=== PATIENT | female | born 1990 | race African-American/Black ===

== ENCOUNTER 2017-12-04 15:58 | Emergency (ER) | payer BC, SELFPAY ==
--- NOTE | 2017-12-04 18:11 | ER ---
Nurse's Notes [facility] Name: Myra Celis Age: 26 yrs Sex: Female : 1990 Arrival Date: 12/04/2017 Time: 16:02 Bed 23 Private MD: None, None Diagnosis: Cutaneous abscess of head [any part, except face];Impetigo Presentation: 12/04 16:09 Presenting complaint: Patient states: I noticed a bump on the L side of my head, alevism ch area last night. it hurt this morning, and busted two hours ago, with pus coming out. I think its a spider bite, im worried about those poisonous ones. Transition of care: patient was not received from another setting of care. Onset of symptoms was December 03, 2017. Risk Assessment: Do you want to hurt yourself or someone else? Patient reports no desire to harm self or others. Initial Sepsis Screen: Does the patient meet any 2 criteria? No. Patient's initial sepsis screen is negative. Does the patient have a suspected source of infection? No. Patient's initial sepsis screen is negative. Care prior to arrival: None. 16:09 Method Of Arrival: Ambulatory 16:09 Acuity: NAINA 5 Triage Assessment: 16:10 General: Appears in no apparent distress. uncomfortable, Behavior is calm, cooperative, ch appropriate for age. 18:25 Bite description: animal information: vaccination(s) is unknown. kr2 18:25 Bite description: bite sustained to left alevism by patient states she thinks it could kr2 have been a spider. 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 - Social history:: Smoking status: Patient uses tobacco products, smokes one-half pack cigarettes per day, Patient/guardian denies using alcohol, street drugs. - Ebola Screening: : Patient negative for fever greater than or equal to 101.5 degrees Fahrenheit, and additional compatible Ebola Virus Disease symptoms Patient denies exposure to infectious person Patient denies travel to an Ebola-affected area in the 21 days before illness onset No symptoms or risks identified at this time. - Family history:: not pertinent. Screenin:30 Abuse screen: Denies threats or abuse. Denies injuries from another. Nutritional kr2 screening: No deficits noted. Tuberculosis screening: No symptoms or risk factors identified. Fall Risk None identified. Assessment: 17:30 General: Appears in no apparent distress. comfortable, well groomed, Behavior is calm, kr2 cooperative, appropriate for age. Pain: Complains of pain in left alevism Pain currently is 3 out of 10 on a pain scale. Quality of pain is described as tender, Is continuous. Neuro: Level of Consciousness is awake, alert, obeys commands, Oriented to person, place, time, situation. Cardiovascular: Capillary refill < 3 seconds in bilateral fingers Patient's skin is warm and dry. Respiratory: Airway is patent Respiratory effort is even, unlabored, Respiratory pattern is regular, symmetrical. Derm: Skin is healthy with good turgor, Skin is pink, warm \T\ dry. raised area to left side of scalp, patient reports it was draining pus. No drainage at this time. 18:37 Reassessment: Patient appears in no apparent distress at this time. Patient and/or kr2 family updated on plan of care and expected duration. Pain level reassessed. Patient is alert, oriented x 3, equal unlabored respirations, skin warm/dry/pink. Vital Signs: 16:10 BP 104 / 69; Pulse 89; Resp 16; Temp 99.2; Pulse Ox 99% on R/A; Weight 58.97 kg; Height 5 ft. 5 in. (165.10 cm); Pain 8/10; 17:26 BP 108 / 75 RA Sitting (auto/reg); Pulse 90; Resp 18 S; Temp 99(O); Pulse Ox 100% on jp3 R/A; Pain 8/10; 18:30 BP 104 / 60; Pulse 89; Resp 17; Pulse Ox 98% on R/A; kr2 16:10 Body Mass Index 21.63 (58.97 kg, 165.10 cm) ED Course: 16:02 Patient arrived in ED. sb2 16:02 None, None is Private Physician. sb2 16:10 Triage completed. ch 16:10 Arm band placed on left wrist. Patient placed in waiting room. 17:20 Pulse ox on. NIBP on. jp3 17:29 Tomasz Taylor MD is Attending Physician. [facility] 17:31 Bed in low position. Call light in reach. Warm blanket given. jp3 17:52 Veronica Ramos, RN is Primary Nurse. kr2 18:22 Urine collected: clean catch specimen, sylwia colored. kr2 18:37 No provider procedures requiring assistance completed. Patient did not have IV access kr2 during this emergency room visit. Administered Medications: 18:12 Drug: Doxycycline 200 mg Route: PO; kr2 18:36 Follow up: Response: Medication administered at discharge. kr2 18:12 Drug: Bactrim (160 mg-800 mg (DS) 1 tablet Route: PO; kr2 18:36 Follow up: Response: Medication administered at discharge. kr2 18:28 Drug: Bactroban Ointment 2 % 1 application Route: Topical; Site: affected area; kr2 18:37 Follow up: Response: Medication administered at discharge. kr2 Outcome: 18:10 Discharge ordered by . [facility] 18:37 Discharged to home ambulatory. kr2 18:37 Condition: good 18:37 Discharge instructions given to patient, Instructed on discharge instructions, follow up and referral plans. medication usage, Demonstrated understanding of instructions, follow-up care, medications, Prescriptions given X 4. 18:39 Patient left the ED. kr2 Signatures: Juani Fisher, RN RN Tomasz Quiroz MD MD cha Reaves, Karey, RN RN kr2 Lynette Newberry2 Filiberto Avila jp3
--- NOTE | 2017-12-04 18:11 | EDPHYS ---
Physician Documentation [facility] Name: Myra Celis Age: 26 yrs Sex: Female : 1990 Arrival Date: 12/04/2017 Time: 16:02 Bed 23 Private MD: None, None ED Physician Tomasz Taylor HPI: 12/04 17:58 This 26 yrs old Black Female presents to ER via Ambulatory with complaints of Insect romy Bite. 17:58 The patient presents with an abscess of the left lutheran, the patient presents with a romy swollen area of the left lutheran. Description: The affected area is small, confluent, draining, erythematous, warm. Onset: The symptoms/episode began/occurred 3 day(s) ago. Possible cause(s): unknown, insect sting. Associated signs and symptoms: The patient has no apparent associated signs or symptoms. Severity of symptoms: At their worst the symptoms were mild, in the emergency department the symptoms are unchanged. The patient has not experienced similar symptoms in the past. 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 - Social history:: Smoking status: Patient uses tobacco products, smokes one-half pack cigarettes per day, Patient/guardian denies using alcohol, street drugs. - Ebola Screening: : Patient negative for fever greater than or equal to 101.5 degrees Fahrenheit, and additional compatible Ebola Virus Disease symptoms Patient denies exposure to infectious person Patient denies travel to an Ebola-affected area in the 21 days before illness onset No symptoms or risks identified at this time. - Family history:: not pertinent. ROS: 17:58 Constitutional: Negative for fever, chills, and weight loss, Eyes: Negative for injury, romy pain, redness, and discharge, ENT: Negative for injury, pain, and discharge, Neck: Negative for injury, pain, and swelling, Cardiovascular: Negative for chest pain, palpitations, and edema, Respiratory: Negative for shortness of breath, cough, wheezing, and pleuritic chest pain, Abdomen/GI: Negative for abdominal pain, nausea, vomiting, diarrhea, and constipation, Back: Negative for injury and pain, : Negative for injury, bleeding, discharge, and swelling, MS/Extremity: Negative for injury and deformity, Neuro: Negative for headache, weakness, numbness, tingling, and seizure, Psych: Negative for depression, anxiety, suicide ideation, homicidal ideation, and hallucinations, Allergy/Immunology: Negative for hives, rash, and allergies, Endocrine: Negative for neck swelling, polydipsia, polyuria, polyphagia, and marked weight changes, Hematologic/Lymphatic: Negative for swollen nodes, abnormal bleeding, and unusual bruising. 17:58 Skin: Positive for erythema, swelling, of the left lutheran. Exam: 17:58 Constitutional: This is a well developed, well nourished patient who is awake, alert, romy and in no acute distress. Eyes: Pupils equal round and reactive to light, extra-ocular motions intact. Lids and lashes normal. Conjunctiva and sclera are non-icteric and not injected. Cornea within normal limits. Periorbital areas with no swelling, redness, or edema. ENT: Nares patent. No nasal discharge, no septal abnormalities noted. Tympanic membranes are normal and external auditory canals are clear. Oropharynx with no redness, swelling, or masses, exudates, or evidence of obstruction, uvula midline. Mucous membranes moist. Neck: Trachea midline, no thyromegaly or masses palpated, and no cervical lymphadenopathy. Supple, full range of motion without nuchal rigidity, or vertebral point tenderness. No Meningismus. Chest/axilla: Normal chest wall appearance and motion. Nontender with no deformity. No lesions are appreciated. Cardiovascular: Regular rate and rhythm with a normal S1 and S2. No gallops, murmurs, or rubs. Normal PMI, no JVD. No pulse deficits. Respiratory: Lungs have equal breath sounds bilaterally, clear to auscultation and percussion. No rales, rhonchi or wheezes noted. No increased work of breathing, no retractions or nasal flaring. Back: No spinal tenderness. No costovertebral tenderness. Full range of motion. Female : Normal external genitalia. Skin: Warm, dry with normal turgor. Normal color with no rashes, no lesions, and no evidence of cellulitis. MS/ Extremity: Pulses equal, no cyanosis. Neurovascular intact. Full, normal range of motion. Neuro: Awake and alert, GCS 15, oriented to person, place, time, and situation. Cranial nerves II-XII grossly intact. Motor strength 5/5 in all extremities. Sensory grossly intact. Cerebellar exam normal. Normal gait. Psych: Awake, alert, with orientation to person, place and time. Behavior, mood, and affect are within normal limits. 17:58 Abdomen/GI: Inspection: Bowel sounds: normal, Palpation: abdomen is soft and non-tender. 17:58 Skin: abscess, that is small, approximately 1 cm(s), cellulitis, that is minimal, induration, that is mild is noted, injury, is not appreciated. Vital Signs: 16:10 BP 104 / 69; Pulse 89; Resp 16; Temp 99.2; Pulse Ox 99% on R/A; Weight 58.97 kg; Height ch 5 ft. 5 in. (165.10 cm); Pain 8/10; 17:26 BP 108 / 75 RA Sitting (auto/reg); Pulse 90; Resp 18 S; Temp 99(O); Pulse Ox 100% on jp3 R/A; Pain 8/10; 18:30 BP 104 / 60; Pulse 89; Resp 17; Pulse Ox 98% on R/A; kr2 16:10 Body Mass Index 21.63 (58.97 kg, 165.10 cm) MDM: 17:29 Patient medically screened. [facility] 18:09 Data reviewed: vital signs, nurses notes, lab test result(s). [facility] 12/04 18:28 Order name: Urine Dipstick--Ancillary (enter results) 12/04 18:28 Order name: Urine --Ancillary (enter results) 12/04 17:57 Order name: Urine Dipstick-Ancillary (obtain specimen); Complete Time: 18:22 [facility] 12/04 17:57 Order name: Urine Test (obtain specimen); Complete Time: 18:22 [facility] Administered Medications: 18:12 Drug: Doxycycline 200 mg Route: PO; kr2 18:36 Follow up: Response: Medication administered at discharge. kr2 18:12 Drug: Bactrim (160 mg-800 mg (DS) 1 tablet Route: PO; kr2 18:36 Follow up: Response: Medication administered at discharge. 2 18:28 Drug: Bactroban Ointment 2 % 1 application Route: Topical; Site: affected area; kr2 18:37 Follow up: Response: Medication administered at discharge. kr2 Disposition: 12/04/17 18:10 Discharged to Home. Impression: Cutaneous abscess of head [any part, except face], Impetigo. - Condition is Stable. - Discharge Instructions: Skin Abscess, Skin Abscess, [id number], Impetigo, Adult. - Prescriptions for Bactroban 2 % Topical Ointment - Apply to affected area 1 application by TOPICAL route every 12 hours; 30 gram. Tylenol- Codeine #3 300-30 mg Oral Tablet - take 2 tablets by ORAL route every 6 hours As needed; 20 tablet. Doxycycline Hyclate 100 mg Oral Tablet - take 1 tablet by ORAL route every 12 hours; 14 tablet. Bactrim DS 800- 160 mg Oral Tablet - take 1 tablet by ORAL route every 12 hours for 7 days; 14 tablet. - Medication Reconciliation Form, Thank You Letter, Antibiotic Education, Prescription Opioid Use, Work release form form. - Follow up: Private Physician; When: 2 - 3 days; Reason: Recheck today's complaints, Continuance of care, Re-evaluation by your physician. - Problem is new. - Symptoms have improved. Signatures: Dispatcher [employer] EDJuani Tan RN RN Tomasz Quiroz MD MD cha Reaves, Karey, RN RN kr2 Corrections: (The following items were deleted from the chart) 18:39 18:10 12/04/2017 18:10 Discharged to Home. Impression: Cutaneous abscess of head [any kr2 part, except face]; Impetigo. Condition is Stable. Forms are Medication Reconciliation Form, Thank You Letter, Antibiotic Education, Prescription Opioid Use. Follow up: Private Physician; When: 2 - 3 days; Reason: Recheck today's complaints, Continuance of care, Re-evaluation by your physician. Problem is new. Symptoms have improved. romy
[2017-12-04] MEDS ORDERED: DOXYCYCLINE 100 MG CAP PO ONE (18:14)
[2017-12-04] MEDS ORDERED: SMZ./TMP. 800/160 MG TABLET ONE (18:14)
[2017-12-04] MEDS ORDERED: MUPIROCIN 2% OINT 22GM TUBE TOP ONE (18:39)
[2017-12-04 19:03] VITALS: TEMP 99
[2017-12-04 19:04] VITALS: BP 104/60; O2SAT 98
[2017-12-04 19:45] LABS: Urine Blood 2+ (NEG); Urine Glucose NEGATIVE (NEG); Urine Protein NEGATIVE (NEG); Urine Specific Gravity 1.025 (1.005-1.030); Urine pH 8.5 (5.0-7.0)
== END 2017-12-04 18:39 | disposition home or self-care (01) ==
LOC: ER 15:58
DX: L01.00 Impetigo, unspecified (principal); F17.210 Nicotine dependence, cigarettes, uncomplicated; Z88.6 Allergy status to analgesic agent
CPT/HCPCS: 81003; 81025; 99284

== ENCOUNTER 2018-02-05 15:49 | Emergency (ER) | payer SELFPAY ==
[2018-02-05 17:00] LABS: Urine Blood 1+ (NEG); Urine Glucose NEGATIVE (NEG); Urine Protein NEGATIVE (NEG); Urine Specific Gravity >1.030 (1.005-1.030)
[2018-02-05 17:01] LABS: Urine Specific Gravity >1.030 (1.005-1.030)
[2018-02-05 17:01] LABS: Absolute Lymphocytes (CBC) 2.2 K/uL (0.7-4.9); Absolute Monocytes 0.7 K/uL (0.1-1.3); Absolute Neutrophil 6.9 K/uL (1.8-8.0); Basophils % 0.6 % (0-1.3); Eosinophils % 2.5 % (0-4.4); Hematocrit 32.6 % (36.0-45.0); Lymphocytes % 21.3 % (15.3-44.8); MCH 26.6 pg (27.0-35.0); MCV 81.5 fL (80-100); MPV 7.9 fL (7.6-11.3); Monocytes % 7.4 % (3.3-12.3)
[2018-02-05 17:30] LABS: ALT/SGPT 26 U/L (12-78); AST/SGOT 22 U/L (15-37); Albumin 3.2 g/dL (3.4-5.0); Alkaline Phosphatase 80 U/L (45-117); BUN Blood Urea Nitrogen 11 mg/dL (7-18); Bicarbonate 28 mmol/L (21-32); Bilirubin Direct < 0.1 mg/dL (0-0.2); Bilirubin Total 0.2 mg/dL (0.2-1.0); Glucose Level 78 mg/dL (74-106); Lipase 139 U/L (73-393); Potassium 3.4 mmol/L (3.5-5.1); Protein, Total 9.4 g/dL (6.4-8.2); Sodium Level 136 mmol/L (136-145)
--- NOTE | 2018-02-05 18:31 | RAD REPORT ---
EXAM DESCRIPTION: US - Transvaginal OB - 02/05/2018 6:20 pm CLINICAL HISTORY: with abdominal pain COMPARISON: None. FINDINGS: The uterus is retroverted and measures 7 x 5 x 6 centimeters. A gestational sac is presen t within the endometrium. Within this is a yolk sac and pole with a crown-rump length 0.2 centi meters. Cardiac activity was not seen The ovaries are normal in size and echotexture. 2.7 centimeter hemorrhagic right ovarian cyst is susp ected No significant free fluid is seen. IMPRESSION: Single l intrauterine with an estimated gestational age 5 weeks 4 days RICKY . Cardiac activity was not visualized. This probably is simply secondary to the small size of the embryo. Followup endovaginal sonogram in 1 week is recommended A 2.7 centimeter hemorrhagic right ovarian cyst is suspected. This can be monitored on the subsequent exam
[2018-02-05 20:35] LABS: Urine Bacteria NONE SEEN /HPF (<20); Urine Culture Reflex Order NOT NEEDED; Urine RBC <5 /HPF (NONE SEEN)
--- NOTE | 2018-02-05 20:44 | ER ---
Nurse's Notes [facility] Name: Myra Celis Age: 27 yrs Sex: Female : 1990 Arrival Date: 02/05/2018 Time: 15:55 Bed 18 Private MD: Diagnosis: Unspecified abdominal pain Presentation: 02/05 16:00 Presenting complaint: Patient states: generalized abd pain that began 2 weeks ago. Pt aa5 denies N/V/D. Pt states "I also feel really tired'. Transition of care: patient was not received from another setting of care. Onset of symptoms was January 2018. Risk Assessment: Do you want to hurt yourself or someone else? Patient reports no desire to harm self or others. Initial Sepsis Screen: Does the patient meet any 2 criteria? No. Patient's initial sepsis screen is negative. Does the patient have a suspected source of infection? No. Patient's initial sepsis screen is negative. Care prior to arrival: None. 16:00 Method Of Arrival: Ambulatory aa5 16:00 Acuity: NAINA 3 aa5 Triage Assessment: 16:00 General: Appears in no apparent distress. comfortable, Behavior is cooperative, bp appropriate for age, anxious. Pain: Complains of pain in abdomen. GI: Abdomen is non-distended, Bowel sounds present X 4 quads. Abd is soft X 4 quads. 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 - Social history:: Smoking status: Patient uses tobacco products, smokes one-half pack cigarettes per day. - Ebola Screening: : No symptoms or risks identified at this time. Screenin:05 Abuse screen: Denies threats or abuse. Denies injuries from another. Nutritional bp screening: No deficits noted. Tuberculosis screening: No symptoms or risk factors identified. Fall Risk None identified. Assessment: 16:05 General: Appears in no apparent distress. comfortable, Behavior is cooperative, bp appropriate for age, anxious. Pain: Complains of pain in abdomen. Neuro: Level of Consciousness is awake, alert, obeys commands, Oriented to person, place, time, situation, Appropriate for age. Cardiovascular: No deficits noted. Respiratory: Airway is patent Respiratory effort is even, unlabored, Respiratory pattern is regular, symmetrical. GI: Abdomen is non-distended, Bowel sounds present X 4 quads. Abd is soft X 4 quads. : No signs and/or symptoms were reported regarding the genitourinary system. EENT: No deficits noted. Derm: No deficits noted. Musculoskeletal: Circulation, motion, and sensation intact. Range of motion: intact in all extremities. 17:40 Reassessment: ALL CURRENT ORDERS COMPLETED, RESULTS PENDING. bp 19:27 Reassessment: Patient appears in no apparent distress at this time. No changes from jd3 previously documented assessment. Patient and/or family updated on plan of care and expected duration. Pain level reassessed. Patient is alert, oriented x 3, equal unlabored respirations, skin warm/dry/pink. 20:30 Reassessment: Patient appears in no apparent distress at this time. No changes from jd3 previously documented assessment. Patient and/or family updated on plan of care and expected duration. Pain level reassessed. Patient is alert, oriented x 3, equal unlabored respirations, skin warm/dry/pink. 21:31 Reassessment: Patient appears in no apparent distress at this time. No changes from jd3 previously documented assessment. Patient and/or family updated on plan of care and expected duration. Pain level reassessed. Patient is alert, oriented x 3, equal unlabored respirations, skin warm/dry/pink. Vital Signs: 16:03 BP 113 / 71; Pulse 101; Resp 18 S; Temp 99.1(O); Pulse Ox 100% on R/A; Weight 55.79 kg aa5 (R); Height 5 ft. 5 in. (165.10 cm) (R); Pain 8/10; 17:45 BP 119 / 63; Pulse 76; Resp 14; Pulse Ox 100% ; bp 19:27 BP 104 / 69; Pulse 78; Resp 16 S; Pulse Ox 100% on R/A; jd3 21:31 Pulse 75; Resp 17 S; Pulse Ox 100% on R/A; jd3 16:03 Body Mass Index 20.47 (55.79 kg, 165.10 cm) aa5 ED Course: 15:55 Patient arrived in ED. mr 16:00 Arm band placed on. aa5 16:01 Triage completed. aa5 16:05 Patient has correct armband on for positive identification. Bed in low position. Call bp light in reach. Side rails up X2. 16:30 Inserted saline lock: 20 gauge in right antecubital area, using aseptic technique. bp Blood collected. 16:34 Jack Kirk, RN is Primary Nurse. bp 16:34 Bin Peters NP is PHCP. pm1 16:34 Tomasz Taylor MD is Attending Physician. pm1 16:45 Basic Metabolic Panel Sent. ls4 16:45 CBC with Diff Sent. ls4 18:20 US Transvaginal Ob In Process Unspecified. EDMS 21:30 No provider procedures requiring assistance completed. IV discontinued, intact, jd3 bleeding controlled, No redness/swelling at site. Pressure dressing applied. Administered Medications: No medications were administered Outcome: 20:44 Discharge ordered by . pm1 21:30 Discharged to home ambulatory. jd3 21:30 Condition: stable 21:30 Discharge instructions given to patient, Instructed on discharge instructions, follow up and referral plans. Demonstrated understanding of instructions, follow-up care. 21:33 Patient left the ED. jd3 Signatures: Dispatcher [employer] [facility] Isha Nunez mr GuzmanaLury, RN RN aa5 Bin Peters NP BELLMAKER pm1 Carlos Jacinto RN RN jJack Dumont, RN RN Tara Kelley RN RN ls4
--- NOTE | 2018-02-05 20:45 | EDPHYS ---
Physician Documentation [facility] Name: Myra Celis Age: 27 yrs Sex: Female : 1990 Arrival Date: 02/05/2018 Time: 15:55 Bed 18 Private MD: ED Physician Tomasz Taylor HPI: 02/05 20:39 This 27 yrs old Black Female presents to ER via Ambulatory with complaints of Abdominal pm1 Cramping. 20:39 The patient presents to the emergency department with abdominal pain, of the suprapubic pm1 area, that started 14 day(s) ago, described as crampy. Previous pregnancies: the patient has never been . Associated signs and symptoms: Pertinent negatives: chest pain, dysuria, fever, nausea, shortness of breath, vomiting. The patient has not experienced similar symptoms in the past. Patient with complaints of abdominal cramping in the suprapubic area for the past 2 weeks. Patient reports late by two weeks for her cycle. 20:39 Her abdominal pain does not feel like her IBS or Crohn's disease . 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 - Social history:: Smoking status: Patient uses tobacco products, smokes one-half pack cigarettes per day. - Ebola Screening: : No symptoms or risks identified at this time. ROS: 20:39 Constitutional: Negative for fever, chills, and weight loss, Eyes: Negative for injury, pm1 pain, redness, and discharge, ENT: Negative for injury, pain, and discharge, Neck: Negative for injury, pain, and swelling, Cardiovascular: Negative for chest pain, palpitations, and edema, Respiratory: Negative for shortness of breath, cough, wheezing, and pleuritic chest pain. 20:39 Back: Negative for injury and pain, : Negative for injury, bleeding, discharge, and swelling, MS/Extremity: Negative for injury and deformity, Skin: Negative for injury, rash, and discoloration, Neuro: Negative for headache, weakness, numbness, tingling, and seizure. 20:39 Abdomen/GI: Positive for abdominal pain, Negative for nausea, vomiting, and diarrhea. Exam: 20:39 Constitutional: This is a well developed, well nourished patient who is awake, alert, pm1 and in no acute distress. Head/Face: Normocephalic, atraumatic. Eyes: Pupils equal round and reactive to light, extra-ocular motions intact. Lids and lashes normal. Conjunctiva and sclera are non-icteric and not injected. Cornea within normal limits. Periorbital areas with no swelling, redness, or edema. ENT: Nares patent. No nasal discharge, no septal abnormalities noted. Tympanic membranes are normal and external auditory canals are clear. Oropharynx with no redness, swelling, or masses, exudates, or evidence of obstruction, uvula midline. Mucous membranes moist. Neck: Trachea midline, no thyromegaly or masses palpated, and no cervical lymphadenopathy. Supple, full range of motion without nuchal rigidity, or vertebral point tenderness. No Meningismus. Chest/axilla: Normal chest wall appearance and motion. Nontender with no deformity. No lesions are appreciated. Cardiovascular: Regular rate and rhythm with a normal S1 and S2. No gallops, murmurs, or rubs. Normal PMI, no JVD. No pulse deficits. Respiratory: Lungs have equal breath sounds bilaterally, clear to auscultation and percussion. No rales, rhonchi or wheezes noted. No increased work of breathing, no retractions or nasal flaring. 20:39 Back: No spinal tenderness. No costovertebral tenderness. Full range of motion. Skin: Warm, dry with normal turgor. Normal color with no rashes, no lesions, and no evidence of cellulitis. MS/ Extremity: Pulses equal, no cyanosis. Neurovascular intact. Full, normal range of motion. 20:39 Abdomen/GI: Inspection: abdomen appears normal, Bowel sounds: normal, Palpation: abdomen is soft and non-tender. 20:39 Neuro: Orientation: is normal, Motor: is normal, moves all fours, strength is normal. Vital Signs: 16:03 BP 113 / 71; Pulse 101; Resp 18 S; Temp 99.1(O); Pulse Ox 100% on R/A; Weight 55.79 kg aa5 (R); Height 5 ft. 5 in. (165.10 cm) (R); Pain 8/10; 17:45 BP 119 / 63; Pulse 76; Resp 14; Pulse Ox 100% ; bp 19:27 BP 104 / 69; Pulse 78; Resp 16 S; Pulse Ox 100% on R/A; jd3 21:31 Pulse 75; Resp 17 S; Pulse Ox 100% on R/A; jd3 16:03 Body Mass Index 20.47 (55.79 kg, 165.10 cm) aa5 MDM: 16:35 Patient medically screened. romy 18:21 Data reviewed: vital signs. Data interpreted: Pulse oximetry: on room air is 100 %. pm1 Interpretation: normal. 18:22 ED course: IUP 5 weeks 5 days. pm1 02/05 16:35 Order name: Basic Metabolic Panel pm1 02/05 16:35 Order name: CBC with Diff pm1 02/05 16:35 Order name: Creatinine for Radiology; Complete Time: 17:38 pm1 02/05 16:35 Order name: Hepatic Function; Complete Time: 17:38 pm1 02/05 16:35 Order name: Lipase; Complete Time: 17:38 pm1 02/05 16:36 Order name: Basic Metabolic Panel; Complete Time: 17:38 EDMS 02/05 16:36 Order name: CBC with Automated Diff; Complete Time: 17:38 EDMS 02/05 16:48 Order name: Urine Dipstick--Ancillary (enter results); Complete Time: 17:38 bd 02/05 16:50 Order name: Urine --Ancillary (enter results); Complete Time: 17:38 bd 02/05 17:46 Order name: Quantitative Hcg pm1 02/05 17:46 Order name: Abo/rh Typing; Complete Time: 20:38 pm1 02/05 17:46 Order name: HCG, Quantitative; Complete Time: 19:48 EDMS 02/05 17:46 Order name: Urine Microscopic Only; Complete Time: 20:38 pm1 02/05 21:14 Order name: ABO/RH no charge; Complete Time: 22:29 EDMS 02/05 16:35 Order name: IV Saline Lock; Complete Time: 16:45 pm1 02/05 16:35 Order name: Labs collected and sent; Complete Time: 16:45 pm1 02/05 16:35 Order name: Urine Dipstick-Ancillary (obtain specimen); Complete Time: 16:45 pm1 02/05 16:35 Order name: Urine Test (obtain specimen); Complete Time: 16:45 pm1 02/05 17:46 Order name: NPO; Complete Time: 17:47 pm1 02/05 17:46 Order name: US Transvaginal Ob; Complete Time: 18:32 pm1 Administered Medications: No medications were administered Disposition: 02/06 06:22 Co-signature as Attending Physician, Tomasz Taylor MD I agree with the assessment and romy plan of care. Disposition: 02/05/18 20:44 Discharged to Home. Impression: Unspecified abdominal pain. - Condition is Stable. - Discharge Instructions: Abdominal Pain, Adult. - Medication Reconciliation Form, Thank You Letter form. - Follow up: Emergency Department; When: As needed; Reason: Worsening of condition. Follow up: Private Physician; When: 2 - 3 days; Reason: Recheck today's complaints, Continuance of care, Re-evaluation by your physician. - Problem is new. - Symptoms have improved. Signatures: Dispatcher [employer] Tomasz Arrington MD MD cha Calderon, Audri, RN RN aa5 Bin Peters NP DIRECTOR OF STRATEGIC MARKETING pm1 Carlos Jacinto RN RN jd3 Corrections: (The following items were deleted from the chart) 02/05 21:33 20:44 02/05/2018 20:44 Discharged to Home. Impression: Unspecified abdominal pain. jd3 Condition is Stable. Forms are Medication Reconciliation Form, Thank You Letter, Antibiotic Education, Prescription Opioid Use. Follow up: Emergency Department; When: As needed; Reason: Worsening of condition. Follow up: Private Physician; When: 2 - 3 days; Reason: Recheck today's complaints, Continuance of care, Re-evaluation by your physician. Problem is new. Symptoms have improved. pm1
[2018-02-05 21:57] VITALS: TEMP 99.1; O2SAT 100
[2018-02-05 22:02] VITALS: BP 104/69
== END 2018-02-05 21:33 | disposition home or self-care (01) ==
LOC: ER 15:49
DX: R10.9 Unspecified abdominal pain (principal); Z3A.01 Less than 8 weeks gestation of pregnancy; O99.331 Smoking (tobacco) complicating pregnancy, first trimester; Z88.6 Allergy status to analgesic agent
CPT/HCPCS: 36415; 76817; 80048; 80076; 81003; 81015; 81025; 83690; 84702; 85025; 86900; 86901; 99284

== ENCOUNTER 2018-03-06 13:31 | Emergency (ER) | payer SELFPAY ==
--- NOTE | 2018-03-06 16:26 | RAD REPORT ---
EXAM DESCRIPTION: US - BREAST/AXILLA, LIMITED - 03/06/2018 2:54 pm CLINICAL HISTORY: Left breast mass. COMPARISON: None. FINDINGS: The patient has a palpable area within the retroareolar region of the left breast. Ultraso und demonstrates a 3.7 x .5 cm hypoechoic area within the subcutaneous tissues in this region. No cystic or solid mass within the underlying breast. An abscess is not seen. IMPRESSION: A 3.7 x 0.5 cm hypoechoic area within the subcutaneous tissues of the retroareolar paul on of the left breast which is palpable may represent an area of cellulitis and should be correlated clinically. Follow-up ultrasound in 1 month is recommended for re-evaluation.
--- NOTE | 2018-03-06 16:28 | EDPHYS ---
Physician Documentation [facility] Name: Myra Celis Age: 27 yrs Sex: Female : 1990 Arrival Date: 03/06/2018 Time: 13:34 Bed 12 Private MD: None, None ED Physician Tomasz Taylor HPI: 03/06 15:31 This 27 yrs old Black Female presents to ER via Ambulatory with complaints of Breast jr8 Problem. 15:31 Patient stated that she has swollen area of breast. Sharp pain to area. Has had this jr8 once before and required antibiotics for resolution . Severity of symptoms: At their worst the symptoms were moderate in the emergency department the symptoms are unchanged. The patient has experienced a previous episode. The patient has not recently seen a physician. 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 - Social history:: Smoking status: Patient/guardian denies using tobacco. - Ebola Screening: : No symptoms or risks identified at this time. ROS: 15:31 Eyes: Negative for injury, pain, redness, and discharge, ENT: Negative for injury, jr8 pain, and discharge, Neck: Negative for injury, pain, and swelling, Cardiovascular: Negative for chest pain, palpitations, and edema, Respiratory: Negative for shortness of breath, cough, wheezing, and pleuritic chest pain, Abdomen/GI: Negative for abdominal pain, nausea, vomiting, diarrhea, and constipation, Back: Negative for injury and pain, MS/Extremity: Negative for injury and deformity, Skin: Negative for injury, rash, and discoloration, Neuro: Negative for headache, weakness, numbness, tingling, and seizure. Exam: 15:31 Eyes: Pupils equal round and reactive to light, extra-ocular motions intact. Lids and jr8 lashes normal. Conjunctiva and sclera are non-icteric and not injected. Cornea within normal limits. Periorbital areas with no swelling, redness, or edema. ENT: Nares patent. No nasal discharge, no septal abnormalities noted. Tympanic membranes are normal and external auditory canals are clear. Oropharynx with no redness, swelling, or masses, exudates, or evidence of obstruction, uvula midline. Mucous membranes moist. Neck: Trachea midline, no thyromegaly or masses palpated, and no cervical lymphadenopathy. Supple, full range of motion without nuchal rigidity, or vertebral point tenderness. No Meningismus. Cardiovascular: Regular rate and rhythm with a normal S1 and S2. No gallops, murmurs, or rubs. Normal PMI, no JVD. No pulse deficits. Respiratory: Lungs have equal breath sounds bilaterally, clear to auscultation and percussion. No rales, rhonchi or wheezes noted. No increased work of breathing, no retractions or nasal flaring. Abdomen/GI: Soft, non-tender, with normal bowel sounds. No distension or tympany. No guarding or rebound. No evidence of tenderness throughout. Back: No spinal tenderness. No costovertebral tenderness. Full range of motion. Skin: Warm, dry with normal turgor. Normal color with no rashes, no lesions, and no evidence of cellulitis. MS/ Extremity: Pulses equal, no cyanosis. Neurovascular intact. Full, normal range of motion. Neuro: Awake and alert, GCS 15, oriented to person, place, time, and situation. Cranial nerves II-XII grossly intact. Motor strength 5/5 in all extremities. Sensory grossly intact. Cerebellar exam normal. Normal gait. 15:31 Chest/axilla: Breasts: small flat raised region just outside the areola region at the 8 o'clock position of the breast. Mild erythema noted with retracting of that side of the areola. Mild tenderness to palpation. Negative for nipple discharge. Other breast without acute finding. No palpable lymphadenopathy present . Vital Signs: 13:42 BP 107 / 72; Pulse 106; Resp 16 S; Temp 97.8(O); Pulse Ox 99% on R/A; Weight 57.61 kg [facility] (R); Height 5 ft. 5 in. (165.10 cm) (R); Pain 8/10; 16:35 BP 111 / 75; Pulse 97; Resp 16; Pulse Ox 100% ; rv 13:42 Body Mass Index 21.14 (57.61 kg, 165.10 cm) jl7 MDM: 14:22 Patient medically screened. jr8 16:26 Data reviewed: vital signs, nurses notes, radiologic studies, ultrasound. Data jr8 interpreted: Pulse oximetry: on room air is 99 %. Interpretation: normal. Counseling: I had a detailed discussion with the patient and/or guardian regarding: the historical points, exam findings, and any diagnostic results supporting the discharge/admit diagnosis, radiology results, the need for outpatient follow up, a family practitioner, an OB/Gyne specialist, to return to the emergency department if symptoms worsen or persist or if there are any questions or concerns that arise at home. 03/06 14:36 Order name: Extrmty Nonvasular Limited jr8 03/06 16:27 [facility]: [facility] Administered Medications: No medications were administered Disposition: 03/07 06:38 Co-signature as Attending Physician, Tomasz Taylor MD I agree with the assessment and romy plan of care. Disposition: 03/06/18 16:27 Discharged to Home. Impression: Local infection of the skin and subcutaneous tissue, unspecified - left breast. - Condition is Stable. - Discharge Instructions: Skin Abscess, Cellulitis, Adult. - Prescriptions for Clindamycin HCl 300 mg Oral Capsule - take 1 capsule by ORAL route every 6 hours for 10 days; 40 capsule. - Medication Reconciliation Form, Thank You Letter, Antibiotic Education, Prescription Opioid Use form. - Follow up: Private Physician; When: 2 - 3 days; Reason: Recheck today's complaints, Continuance of care, Re-evaluation by your physician. - Problem is new. - Symptoms have improved. Signatures: Dispatcher [employer] [facility] Tomasz Taylor MD MD cha Roszak, Josh, PA PA jr8 Manoj Robles RN RN jl7 Franck Giles RN RN rv Corrections: (The following items were deleted from the chart) 03/06 16:36 16:27 03/06/2018 16:27 Discharged to Home. Impression: Local infection of the skin and rv subcutaneous tissue, unspecified - left breast. Condition is Stable. Forms are Medication Reconciliation Form, Thank You Letter, Antibiotic Education, Prescription Opioid Use. Follow up: Private Physician; When: 2 - 3 days; Reason: Recheck today's complaints, Continuance of care, Re-evaluation by your physician. Problem is new. Symptoms have improved. jr8
--- NOTE | 2018-03-06 16:28 | ER ---
Nurse's Notes [facility] Name: Myra Celis Age: 27 yrs Sex: Female : 1990 Arrival Date: 03/06/2018 Time: 13:34 Bed 12 Private MD: None, None Diagnosis: Local infection of the skin and subcutaneous tissue, unspecified-left breast Presentation: 03/06 13:41 Presenting complaint: Patient states: lump in left breast started a week ago, throbbing jl7 pain, 8 weeks . Transition of care: patient was not received from another setting of care. Onset of symptoms was February 27, 2018. Risk Assessment: Do you want to hurt yourself or someone else? Patient reports no desire to harm self or others. Initial Sepsis Screen: Does the patient meet any 2 criteria? No. Patient's initial sepsis screen is negative. Does the patient have a suspected source of infection? No. Patient's initial sepsis screen is negative. Care prior to arrival: None. 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 - Social history:: Smoking status: Patient/guardian denies using tobacco. - Ebola Screening: : No symptoms or risks identified at this time. Screenin:49 Abuse screen: Denies threats or abuse. Denies injuries from another. Nutritional iw screening: No deficits noted. Tuberculosis screening: No symptoms or risk factors identified. Fall Risk None identified. Assessment: 14:49 General: Appears in no apparent distress. Behavior is calm, cooperative. Pain: iw Complains of pain in left breast. Neuro: Level of Consciousness is awake, alert, obeys commands, Oriented to person, place, time, situation, Moves all extremities. Full function. Cardiovascular: Capillary refill < 3 seconds in bilateral fingers Patient's skin is warm and dry. Respiratory: Respiratory effort is even, unlabored, Respiratory pattern is regular. Derm: Skin is intact, is healthy with good turgor. Musculoskeletal: Range of motion: intact in all extremities. Vital Signs: 13:42 BP 107 / 72; Pulse 106; Resp 16 S; Temp 97.8(O); Pulse Ox 99% on R/A; Weight 57.61 kg jl7 (R); Height 5 ft. 5 in. (165.10 cm) (R); Pain 8/10; 16:35 BP 111 / 75; Pulse 97; Resp 16; Pulse Ox 100% ; rv 13:42 Body Mass Index 21.14 (57.61 kg, 165.10 cm) jl7 ED Course: 13:34 Patient arrived in ED. sb2 13:35 None, None is Private Physician. sb2 13:42 Triage completed. jl7 13:42 Arm band placed on right wrist. Patient placed in waiting room, Patient notified of jl7 wait time. 14:21 Magan Eli PA is PHCP. jr8 14:21 Tomasz Taylor MD is Attending Physician. jr8 14:49 Maddi Spears, RN is Primary Nurse. iw 14:50 Patient did not have IV access during this emergency room visit. iw 14:56 Ultrasound completed. Patient tolerated well. Patient moved back from ultrasound. thierry 15:00 Patient has correct armband on for positive identification. Call light in reach. NIBP rv on. 16:36 No provider procedures requiring assistance completed. Patient did not have IV access rv during this emergency room visit. Administered Medications: No medications were administered Outcome: 16:27 Discharge ordered by . jr8 16:36 Discharged to home ambulatory. rv 16:36 Condition: good 16:36 Discharge instructions given to patient, Instructed on discharge instructions, follow up and referral plans. medication usage, Demonstrated understanding of instructions, follow-up care, medications, Prescriptions given X 1. 16:36 Patient left the ED. rv Signatures: Maddi Spears, RN JONATHAN iw Magan Eli PA PA jr8 Baldomero Orellana jd, Jahala, RN RN jl7 Lynette Newberry sb2 Franck Giles RN RN rv Corrections: (The following items were deleted from the chart) 13:44 13:41 Presenting complaint: Patient states: lump in left breast started a week ago, jl7 throbbing pain jl7 14:10 13:42 BP 107 / 72; Pulse 106bpm; Resp 06bpm; Spontaneous; Pulse Ox 99% RA; Temp 97.8F jl7 Oral; 57.61 kg Reported; Height 5 ft. 5 in. Reported; BMI: 21.1; Pain 8/; jl7
[2018-03-06 17:08] VITALS: TEMP 97.8
[2018-03-06 17:10] VITALS: BP 111/75; O2SAT 100
== END 2018-03-06 16:36 | disposition home or self-care (01) ==
LOC: ER 13:31
DX: L08.9 Local infection of the skin and subcutaneous tissue, unspecified (principal); Z88.6 Allergy status to analgesic agent
CPT/HCPCS: 76642; 99284

== ENCOUNTER 2021-05-03 10:40 | Emergency (ER) | payer OTHER, SELFPAY ==
[2011-10-14 13:11] VITALS: BP 96/61
--- OUTSIDE RECORDS SUMMARY | 2021-05-03 10:43 | XMS REPORT | Continuity of Care Document ---
:1990 Author Organization [facility] t Address [address] [place] [address] Care Team Providers Name Role Phone Regan CAROL, Efrain Primary Care Physician Doctor Unassigned, Name Attending Clinician Unavailable Payers Payer Name Policy Type Policy Number Effective Date Expiration Date S ource Advance Directives Directive Decision Effective Termination Comments Source Date Date Healthcare Agents on N/A Univ ersity FileNameRelationshipHealthcare Foundation [facility] Agent Medical RelationshipCommunicationMultiCare [facility] Care [phone] (Mobile) Problems Condition Condition Condition Status Onset Resolution Last Treating Co mments Source Name Details Category Date Date Treatment Clinician Date Liveborn Liveborn Disease Active Unive rs , of , of 6-13 [place] y of [place] dical born in born in [facility] by vaginal by vaginal delivery delivery Mild Mild Disease Active Univers pre-eclamp pre-eclamp 6-12 it y of josephine in josephine in 00:00: [place] third third 00 Medical trimester trimester Bran ch Full-term Full-term Disease Active Uni vers premature premature 6-11 ity of rupture [place] 00:[place] membranes membranes 00 Medi jan with onset with onset Br anch of labor of labor within 24 within 24 hours of hours of rupture rupture Obesity Obesity Disease Active Univers (BMI (BMI 6-11 ity of 30-39.9) 30-39.9) 00:00: [place] 00 Medical Branch 38 weeks 38 weeks Disease Active Unive rs gestation gestation 6-11 ity of of of 00:00: [place] 00 [facility] Branch PUPP PUPP Disease Active Univers (pruritic (pruritic 5-31 ity of urticarial urticarial 00:[place] papules papules 00 Medical and and Branch plaques of plaques of ) ) Pruritic Pruritic Disease Active Overview: Un shaji urticarial urticarial 5-30 Formattin ity of papules papules 00:00: g of this [place] and and 00 note Medical plaques of plaques of might be Branch , , different antepartum antepartum from the , third , third original. trimester trimester 09/13/18 - PUPPS rash. Patient started on Medrol dose pack. Serum bile acids normal on 09/10/18. Anemia of Anemia of Disease Active Uni vers mother in mother in 3-19 ity of , , 00:[place] antepartum antepartum 00 Me dical Branch Supervisio Supervisio Disease Active U nivers n of n of 3-15 ity of high-risk high-risk 00:[place] [facility] with with Branch insufficie insufficie nt nt care care History of History of Disease Active U nivers depression depression 3-15 it y of 00:00: [place] 00 Medical Branch History of History of Disease Active Overview : Univers herpes herpes 3-15 Formattin ity of genitalis genitalis 00:00: [place] 00 note Medical might be Branch different from the original. suppressi on therapy start at 36 weeks Crohn's Crohn's Disease Active Overview: Univ ers disease disease 3-15 Formattin ity o f 00:00: g of this [place] 00 note Medical might be Branch different from the original. Reports last time on meds was 06/2017 Allergies, Adverse Reactions, Alerts Allergy Allergy Status Severity Reaction(s) Onset Inactive Treating Comm ents Source Name Type Date Date Clinician Naproxen Propensi Active Hives Univer s ty to 1-28 ity of adverse 00:00: [place] reaction 00 Medical s Branch Social History Social Habit Start Date Stop Date Quantity Comments Source Alcohol intake 2018-10-24 2018-10-24 Current University of 00:00:00 00:00:00 non-drinker of [facility] alcohol Branch (finding) Tobacco Comment 2018-06-29 2018-06-29 Pt quit 2 months Uni versity of 00:00:00 00:00:00 ago [facility] Cigarettes smoked 2018-06-29 2018-06-29 Univers ity of current (pack per 00:00:00 00:00:00 [facility] ) - Reported Branch Cigarette 2018-06-29 2018-06-29 University of pack-years 00:00:00 00:00:00 [facility] Tobacco use and 2018-06-29 2018-06-29 Never used Universit y of exposure 00:00:00 00:00:00 [facility] History of tobacco 2008-06-29 2018-05-01 Cigarette Smoker University of use 00:00:00 00:00:00 [facility] Sex Ass[birth year] At [birth year] Universit y of 00:00:00 00:00:00 [facility] Smoking Status Start Date Stop Date Source Former smoker 2018-06-29 00:00:00 2018-06-29 00:00:00 Universi ty of [facility] Medications Ordered Filled Start Stop Current Ordering Indication Dosage Frequency Signature Comments Components Source Medication Medication Date Date Medication? Clinician (SIG) Name Name Yes [id number] 1{tbl} Take 1 U nivers vitamin 6-13 tablet by ity of w/FA tablet 00:00: mouth [place] 00 daily. Medical Branch ferrous Yes [id number] 325mg Take 1 Uni vers sulfate 325 6-13 tablet by ity of mg (65 mg 00:00: mouth 2 [place] iron) 00 (two) Medical tablet times Branch daily. Immunizations Ordered Filled Immunization Date Status Comments Sourc e Immunization Name Name TDAP 2018-07-20 Completed University 00:00:00 [facility] Influenza Virus 2018-06-29 Completed Universit y of Vaccine Quad .5 mL 00:00:00 [facility] IM 6+ MO Branch HPV 2008-08-22 Completed University of 00:00:00 [facility] HPV 2007-11-27 Completed University 00:00:00 [facility] Procedures This patient has no known procedures. Encounters Start End Encounter Admission Attending Care Care Encounter Source Date/Time Date/Time Type Type Clinicians Facility Department ID 2021-04-12 2021-04-12 Letter Doctor DL [id number] 00:00:00 00:00:00 (Out) Unassigned, [place] [id number] ity of [place] [facility] [id number] Anthony as [id number] [facility] 044 Branch Results This patient has no known results.
--- NOTE | 2021-05-03 12:32 | ER ---
Nurse's Notes [facility] Name: Myra Celis Age: 30 yrs Sex: Female : 1990 Arrival Date: 05/03/2021 Time: 10:44 Bed Waiting Private MD: Diagnosis: ED Course: 05/03 10:44 Patient arrived in ED. ja2 12:11 Patient's name was called from ER lobby. No response. vg1 12:32 Patient's name was called from ER lobby. No response. Unable to locate patient. Will vg1 disposition as left without being seen by a provider. Administered Medications: No medications were administered Outcome: 12:32 Patient left the ED. vg1 Signatures: Diane Avila RN RN vg1 Crystal Coleman
== END 2021-05-03 12:32 | disposition left against medical advice (07) ==
LOC: ER 10:40
DX: Z02.9 Encounter for administrative examinations, unspecified (principal)

== ENCOUNTER 2022-02-15 17:10 | Emergency (ER) | payer OTHER ==
--- OUTSIDE RECORDS SUMMARY | 2022-02-15 17:13 | XMS REPORT | Continuity of Care Document ---
:1990 Author Organization [facility] t Address [address] [place] [address] Care Team Providers Name Role Phone Regan CAROLJessica Efrain Primary Care Physician Doctor Unassigned, [facility] Attending Clinician Unavailable Payers Payer Name Policy Type Policy Number Effective Date Expiration Date S ource Problems Condition Condition Condition Status Onset Resolution Last Treating Co mments Source Name Details Category Date Date Treatment Clinician Date Liveborn Liveborn Disease Active Unive rs , of infant, of 6-13 it y [place] , [place] Me dical born in born in [facility] by vaginal by vaginal delivery delivery Mild Mild Disease Active Univers pre-eclamp pre-eclamp 6-12 it y of josephine in josephine in 00:00: [place] third third 00 Medical trimester trimester Bran ch Full-term Full-term Disease Active Uni vers premature premature 6-11 ity of rupture [place] rupture [place] membranes membranes 00 [facility] with onset with onset Br anch of labor of labor within 24 within 24 hours of hours of rupture rupture Obesity Obesity Disease Active 2018- Univers (BMI (BMI 6-11 ity of 30-39.9) 30-39.9) 00:00: [address] 38 weeks 38 weeks Disease Active Unive rs gestation gestation 6-11 ity of of of 00:00: [place] 00 [facility] Branch PUPP PUPP Disease Active Univers (pruritic [...] of high-risk high-risk 00:[place] [facility] with with Branch insufficie insufficie nt nt [...] Propensi Active Hives Univer s ty to - ity of adverse 00:00: [place] reaction 00 Medical s Branch Social History Social Habit Start Date Stop Date Quantity Comments Source Alcohol intake 2018-10-24 2018-10-24 Current University of 00:00:00 00:00:00 non-drinker of [facility] alcohol Branch (finding) Tobacco Comment 2018-06-29 2018-06-29 Pt quit 2 months Uni versity of 00:00:00 00:00:00 ago [facility] Cigarettes smoked 2018-06-29 2018-06-29 Univers ity of current (pack per 00:00:00 00:00:00 ) - Reported Branch Cigarette 2018-06-29 2018-06-29 University of pack-years 00:00:00 00:00:00 [facility] Tobacco use and 2018-06-29 2018-06-29 Never used Universit y of exposure 00:00:00 00:00:00 [facility] History of tobacco 2008-06-29 2018-05-01 Cigarette Smoker University of use 00:00:00 00:00:00 [facility] Sex Assigned At [birth year] Universit y of 00:00:00 00:00:00 [facility] Smoking Status Start Date Stop Date Source Former smoker 2018-06-29 00:00:00 2018-06-29 00:00:00 Universi ty of [facility] Medications Ordered Filled Start Stop Current Ordering Indication Dosage Frequency Signature Comments Components Source Medication Medication Date Date Medication? Clinician (SIG) Name Name Yes [id number] 1{tbl} Take 1 U nivers vitamin 6-13 tablet by ity of w/FA tablet 00:00: mouth [place] 00 daily. Medical Branch ferrous Yes [id number] 325mg Take 1 Uni vers sulfate 325 6-13 tablet by ity of mg (65 mg 00:00: mouth 2 [place] iron) 00 (two) Medical tablet times [place] daily. Immunizations Ordered Filled Immunization Date Status Comments Sourc e Immunization Name Name TDAP 2018-07-20 Completed University of 00:00:00 [facility] Influenza Virus 2018-06-29 Completed Universit y of Vaccine Quad .5 mL 00:00:00 [facility] IM 6+ MO Branch HPV 2008-08-22 Completed University of 00:00:00 [facility] HPV 2007-11-27 Completed University of 00:00:00 [facility] Procedures This patient has no known procedures. Encounters Start End Encounter Admission Attending Care Care Encounter Source Date/Time Date/Time Type Type Clinicians Facility Department ID 2021-04-12 2021-04-12 Letter Doctor LIZAMA [id number] Univers 00:00:00 00:00:00 (Out) Unassigned, [place] [id number] ity of [facility] [id number] Anthony as [id number] [facility] 044 Branch Results This patient has no known results.
[2022-02-15 17:55] LABS: Urine Blood Trace-intact (Negative); Urine Glucose Negative (Negative); Urine Protein 2+ (Negative); Urine Specific Gravity 1.025 (1.005-1.030)
[2022-02-15 17:58] LABS: Hematocrit 33.8 % (36.0-45.0); Lymphocytes % 23.2 % (15.3-44.8); MCV 78.4 fL (80-100); MPV 8.2 fL (7.6-11.3); RBC Red Blood Cell Count 4.31 M/uL (3.86-4.86)
[2022-02-15 18:14] LABS: Urine Bacteria <20 /HPF (<20); Urine Mucus Slight /HPF (None Seen)
[2022-02-15 18:19] LABS: Bilirubin Total 0.2 mg/dL (0.2-1.0); Potassium 3.2 mmol/L (3.5-5.1); Protein, Total 9.9 g/dL (6.4-8.2)
[2022-02-15 18:20] LABS: Urine Specific Gravity/Preg 1.025 (1.005-1.030)
--- NOTE | 2022-02-15 18:45 | RAD REPORT ---
EXAM DESCRIPTION: US - Abdomen Exam Limited - 02/15/2022 6:24 pm CLINICAL HISTORY: Abdominal pain. COMPARISON: None. FINDINGS: The patient 8 1 hour ago which results in contraction of the gallbladder. This limits eval uation. A normal appearing gallbladder is not seen. Within the right upper quadrant there is an echogenic str ucture with posterior shadowing. Most likely this represents stones within a contracted gallbladder. Gallbladder wall thickness not clearly delineated. Common bile duct normal caliber IMPRESSION: Cholelithiasis within a contracted gallbladder
--- NOTE | 2022-02-15 19:57 | RAD REPORT ---
EXAM DESCRIPTION: CT - Abdomen Pelvis W Contrast - 02/15/2022 7:46 pm CLINICAL HISTORY: Abdominal pain COMPARISON: 2014 TECHNIQUE: Computed axial tomography of the abdomen pelvis was obtained. 100 cc Isovue-300 was admin istered intravenously. Oral contrast was not requested which limits evaluation of bowel and appendix All CT scans are performed using dose optimization technique as appropriate and may include automated exposure control or mA/KV adjustment according to patient size. FINDINGS: The liver, spleen, pancreas, adrenal and left kidney appear unremarkable. Malrotation righ t kidney. Gallbladder is contracted There is no evidence of diverticulitis. Normal appendix 3 centimeter right ovarian cyst without significant free fluid IMPRESSION: 3 centimeter right ovarian cyst without significant free fluid
--- NOTE | 2022-02-15 19:58 | RAD REPORT ---
EXAM DESCRIPTION: [facility] Single View02/15/2022 7:17 pm CLINICAL HISTORY: Chest pain COMPARISON: none FINDINGS: The lungs appear clear of acute infiltrate. The heart is normal size IMPRESSION: No acute abnormalities displayed
--- NOTE | 2022-02-15 20:11 | ER ---
Nurse's Notes [facility] Name: Myra Celis Age: 31 yrs Sex: Female : 1990 Arrival Date: 02/15/2022 Time: 17:13 Bed 15 Private MD: Diagnosis: Other cholelithiasis without obstruction Presentation: 02/15 17:24 Chief complaint: Patient states: Pt reports sudden onset of LUQ abdominal pain that kb3 radiated into epigastrium and up into chest, lasted approximately 10 minutes, pt belched and pain resolved. Pt reports mild nausea with episode without vomiting. Pt states no pain or nausea at this time. Coronavirus screen: Vaccine status: Patient reports being unvaccinated. Client denies travel out of the [place] in the last 14 days. Ebola Screen: Patient negative for fever greater than or equal to 101.5 degrees Fahrenheit, and additional compatible Ebola Virus Disease symptoms Patient denies exposure to infectious person. Patient denies travel to an Ebola-affected area in the 21 days before illness onset. Initial Sepsis Screen: Does the patient meet any 2 criteria? No. Patient's initial sepsis screen is negative. Does the patient have a suspected source of infection? No. Patient's initial sepsis screen is negative. Risk Assessment: Do you want to hurt yourself or someone else? Patient reports no desire to harm self or others. Onset of symptoms was February 15, 2022 at 14:00. 17:24 Method Of Arrival: Ambulatory kb3 17:24 Acuity: NAINA 3 kb3 Triage Assessment: 17:26 General: Appears in no apparent distress. Behavior is calm, cooperative. Pain: Denies kb3 pain. GI: Reports upper abdominal pain, epigastric pain, nausea, All symptoms have resolved. PRACTICE MANAGERS: 17:26 LMP 01/26/2022 kb3 Historical: - Allergies: 17:26 Naproxen; kb3 - Home Meds: 17:26 None [Active]; kb3 - PMHx: 17:26 chron's; Irritable bowel syndrome; kb3 - PSHx: 17:26 None; kb3 - Immunization history:: Adult Immunizations up to date, Client reports having NOT received the Covid vaccine. Last tetanus immunization: unknown. - Social history:: Smoking status: Reported history of juuling and/or vaping. Screenin:35 Abuse screen: Denies threats or abuse. Denies injuries from another. Nutritional ko1 screening: No deficits noted. Tuberculosis screening: No symptoms or risk factors identified. Fall Risk None identified. Assessment: 17:35 General: Appears in no apparent distress. comfortable, Behavior is calm, cooperative, ko1 appropriate for age. Pain: Denies pain. Neuro: No deficits noted. Cardiovascular: No deficits noted. Respiratory: No deficits noted. GI: Bowel sounds present X 4 quads. Abd is soft and non tender X 4 quads. : No deficits noted. EENT: No deficits noted. Derm: No deficits noted. Musculoskeletal: No deficits noted. Vital Signs: 17:24 BP 120 / 81; Pulse 92; Resp 20; Temp 97; Pulse Ox 100% ; Weight 59.87 kg; Height 5 ft. kb3 5 in. (165.10 cm); Pain 0/10; 17:35 BP 120 / 81; Pulse 91; Resp 18; Pulse Ox 99% on R/A; ko1 19:06 Pulse 88; Pulse Ox 100% ; ko1 17:24 Body Mass Index 21.97 (59.87 kg, 165.10 cm) kb3 ED Course: 17:13 Patient arrived in ED. as 17:14 Tomasz Briggs PA is PHCP. cp 17:14 Nikolay Rankin DO is Attending Physician. cp 17:20 Katelin Hankins, JONATHAN is Primary Nurse. ko1 17:26 Triage completed. kb3 17:26 Arm band placed on right wrist. Patient placed in an exam room, on a stretcher. kb3 17:35 Patient has correct armband on for positive identification. Placed in gown. Bed in low ko1 position. Call light in reach. Side rails up X 1. Pulse ox on. NIBP on. 17:35 Inserted saline lock: 22 gauge in right antecubital area, using aseptic technique. ko1 Blood collected. 17:48 CBC with Diff Sent. ko1 17:48 CMP Sent. ko1 17:48 Lipase Sent. ko1 17:48 Urine Microscopic Only Sent. ko1 18:26 Abdomen Limited US In Process Unspecified. EDMS 19:19 XRAY Chest (1 view) In Process Unspecified. EDMS 19:47 CT Abd/Pelvis - IV Contrast Only In Process Unspecified. EDMS 20:10 Alexander Zarate MD is Referral Physician. cp 20:37 No provider procedures requiring assistance completed. IV discontinued, intact, ll3 bleeding controlled, No redness/swelling at site. Pressure dressing applied. Administered Medications: No medications were administered Medication: 20:38 VIS not applicable for this client. ll3 Outcome: 20:11 Discharge ordered by MD. cp 20:37 Discharged to home ambulatory, with family. ll3 20:37 Condition: stable 20:37 Discharge instructions given to patient, family, Instructed on discharge instructions, follow up and referral plans. medication usage, Demonstrated understanding of instructions, follow-up care, medications, Prescriptions given X 3. 20:39 Patient left the ED. ll3 Signatures: Dispatcher [employer] EDSD Asuncion Zarate Corey, Jimena Stewart cp, RN RN ll3 Sania Sandoval, RN RN kb3 Katelin Hankins RN RN ko1 Corrections: (The following items were deleted from the chart) 17:31 17:26 LMP 01/15/2022 kb3 kb3
--- NOTE | 2022-02-15 20:11 | EDPHYS ---
Physician Documentation [facility] Name: Myra Celis Age: 31 yrs Sex: Female : 1990 Arrival Date: 02/15/2022 Time: 17:13 Bed 15 Private MD: ED Physician Nikolay Rankin HPI: 02/15 17:30 This 31 yrs old Black Female presents to ER via Ambulatory with complaints of Abdominal cp Pain, Chest Pain. 17:30 The patient presents with abdominal pain in the epigastric area, in the left upper cp quadrant. 17:30 Onset: The symptoms/episode began/occurred suddenly, today. cp 17:30 The symptoms radiate to chest. cp 17:30 Associated signs and symptoms: Pertinent negatives: constipation, diarrhea, fever, cp shortness of breath, vomiting. The symptoms are described as constant. 17:30 Severity of pain: in the emergency department the pain has resolved and did so just cp prior to arrival. 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 Last tetanus immunization: unknown. - Social history:: Smoking status: Reported history of juuling and/or vaping. ROS: 17:35 Constitutional: Negative for body aches, chills, fever, poor PO intake. cp 17:35 Eyes: Negative for injury, pain, redness, and discharge. cp 17:35 ENT: Negative for drainage from ear(s), ear pain, sore throat, difficulty swallowing, difficulty handling secretions. 17:35 Cardiovascular: Negative for chest pain, edema, palpitations. 17:35 Respiratory: Negative for cough, shortness of breath, wheezing. 17:35 Abdomen/GI: Positive for abdominal pain, Negative for vomiting, diarrhea, constipation, black/tarry stool, rectal bleeding. 17:35 Back: Negative for pain at rest, pain with movement. 17:35 : Negative for urinary symptoms. 17:35 Neuro: Negative for altered mental status, dizziness, headache, weakness. 17:35 All other systems are negative. Exam: 17:40 Constitutional: The patient appears in no acute distress, alert, awake, comfortable, cp non-diaphoretic, non-toxic, well developed, well nourished. 17:40 Head/Face: Normocephalic, atraumatic. cp 17:40 Eyes: Periorbital structures: appear normal, Conjunctiva: normal, no exudate, no injection, Sclera: no appreciated abnormality, Lids and lashes: appear normal, bilaterally. 17:40 ENT: External ear(s): are unremarkable, Nose: is normal, Mouth: Lips: moist, Oral mucosa: moist, Posterior pharynx: Airway: no evidence of obstruction, patent. 17:40 Chest/axilla: Inspection: normal. 17:40 Cardiovascular: Rate: normal, Rhythm: regular. 17:40 Respiratory: the patient does not display signs of respiratory distress, Respirations: normal, no use of accessory muscles, no retractions, labored breathing, is not present, Breath sounds: are clear throughout, no decreased breath sounds, no stridor, no wheezing. 17:40 Abdomen/GI: Inspection: abdomen appears normal, Bowel sounds: active, all quadrants, Palpation: soft, in all quadrants, mild abdominal tenderness, in the epigastric area and left upper quadrant, rebound tenderness, is not appreciated, voluntary guarding, is not appreciated, involuntary guarding, is not appreciated. 17:40 Back: pain, is absent, ROM is normal. 17:40 Neuro: Orientation: to person, place \T\ time. Mentation: is normal, Motor: moves all fours, strength is normal, Sensation: is normal. Vital Signs: 17:24 BP 120 / 81; Pulse 92; Resp 20; Temp 97; Pulse Ox 100% ; Weight 59.87 kg; Height 5 ft. kb3 5 in. (165.10 cm); Pain 0/10; 17:35 BP 120 / 81; Pulse 91; Resp 18; Pulse Ox 99% on R/A; ko1 19:06 Pulse 88; Pulse Ox 100% ; ko1 17:24 Body Mass Index 21.97 (59.87 kg, 165.10 cm) kb3 MDM: 17:23 Patient medically screened. cp 18:00 Differential diagnosis: appendicitis, cholecystitis, Cholelithiasis, non-specific abd cp pain, pancreatitis, Peptic Ulcer Disease, Perf. Duodenal Ulcer, Perf. Gastric Ulcer, Ureterolithiasis, urinary tract infection. 20:10 Data reviewed: vital signs, nurses notes, lab test result(s), radiologic studies, CT cp scan, plain films, ultrasound. 20:10 Counseling: I had a detailed discussion with the patient and/or guardian regarding: the cp historical points, exam findings, and any diagnostic results supporting the discharge/admit diagnosis, lab results, radiology results, the need for outpatient follow up, a general surgeon, to return to the emergency department if symptoms worsen or persist or if there are any questions or concerns that arise at home. Response to treatment: Pain resolved prior to arrival to ED. Discussed results of today's findings. Will discharge to home for continued monitoring and recommend general surgery f/u. 02/15 17:27 Order name: CBC with Diff; Complete Time: 18:27 cp 02/15 18:28 Interpretation: Normal except: HGB 11.0; HCT 33.8; MCV 78.4; MCH 25.5; RDW 15.4. 02/15 17:27 Order name: CMP; Complete Time: 18:27 cp 02/15 19:14 Interpretation: Normal except: NA 134; K 3.2; GLUC 113; TP 9.9; GLOB 5.9; A/G 0.7. 02/15 17:27 Order name: Lipase; Complete Time: 18:27 cp 02/15 17:27 Order name: Urine Microscopic Only; Complete Time: 18:27 cp 02/15 17:55 Order name: Urine Dipstick-Ancillary; Complete Time: 18:27 EDMS 02/15 17:56 Order name: Urine --Ancillary (enter results); Complete Time: 18:27 em1 02/15 17:27 Order name: Abdomen Limited US; Complete Time: 19:13 cp 02/15 17:27 Order name: IV Saline Lock; Complete Time: 17:48 cp 02/15 17:27 Order name: Labs collected and sent; Complete Time: 17:48 cp 02/15 17:27 Order name: Urine Dipstick-Ancillary (obtain specimen); Complete Time: 17:48 cp 02/15 17:27 Order name: Urine Test (obtain specimen); Complete Time: 17:48 02/15 17:27 Order name: NPO; Complete Time: 17:37 cp 02/15 18:29 Order name: XRAY Chest (1 view); Complete Time: 20:00 cp 02/15 19:17 Order name: CT Abd/Pelvis - IV Contrast Only; Complete Time: 20:00 cp Administered Medications: No medications were administered Disposition: 18:36 Co-signature as Attending Physician, Nikolay Rankin DO I was immediately available on-site ms3 in the Emergency Department for consultation in the care of the patient. Disposition Summary: 02/15/22 20:11 Discharge Ordered Location: Home cp Problem: new cp Symptoms: are resolved cp Condition: Stable cp Diagnosis - Other cholelithiasis without obstruction cp Followup: cp - With: Alexander Zarate MD - When: 2 - 3 days - Reason: Recheck today's complaints Discharge Instructions: - Discharge Summary Sheet cp - Cholelithiasis cp Forms: - Medication Reconciliation Form cp - Thank You Letter cp - Antibiotic Education cp - Prescription Opioid Use cp Prescriptions: - Zofran 4 mg Oral Tablet - take 1 tablet by ORAL route every 12 hours As needed; 20 tablet; Refills: 0, cp Product Selection Permitted - dicyclomine 20 mg Oral Tablet - take 1 tablet by ORAL route 4 times per day; 30 tablet; Refills: 0, Product cp Selection Permitted - Pepcid 20 mg Oral Tablet - take 1 tablet by ORAL route every 12 hours for 10 days; 20 tablet; Refills: 0, cp Product Selection Permitted Signatures: Dispatcher [employer] EDHI Tomasz Briggs PA PA cp Nikolay Rankin DO DO ms3 Sania Sandoval RN RN kb3 Corrections: (The following items were deleted from the chart) 19:14 18:28 Normal except: NA 134; K 3.2; GLUC 113. cp cp 19:14 19:14 Normal except: NA 134; K 3.2; GLUC 113; TP 9.9. cp cp
[2022-02-15 21:04] VITALS: BP 120/81; TEMP 97
[2022-02-15 21:06] VITALS: O2SAT 100
== END 2022-02-15 20:39 | disposition home or self-care (01) ==
LOC: ER 17:10
DX: K80.80 Other cholelithiasis without obstruction (principal); Z88.5 Allergy status to narcotic agent
CPT/HCPCS: 85025; 36415; 81025; 83690; 80053; 74177; 71045; 76705; Q9967; 81003; 81015; 99284

== ENCOUNTER 2022-02-28 10:18 | Day surgery (SDC) | payer OTHER ==
[2022-02-28] MEDS ORDERED: Ringers Lactate 1,000 ML IV ONE (11:02)
[2022-02-28] MEDS: CEFOXITIN SODIUM 1 GM/VIAL ONE ×2 (11:22→13:10)
[2022-02-28 12:05] LABS: Amylase 29 U/L (25-115); Lipase 94 U/L (73-393)
[2022-02-28 12:29] LABS: Urine Specific Gravity/Preg >1.030 (1.005-1.030)
[2022-02-28] MEDS ORDERED: propofoL 200 MG/20 ML VIAL IV ONE (12:38)
[2022-02-28] MEDS ORDERED: FENTANYL CITR 100 MCG/2 ML ONE ×2 (12:38→14:31)
[2022-02-28] MEDS ORDERED: LIDOCAINE 2% MPF 5 ML VIAL ONE (12:39)
[2022-02-28] MEDS ORDERED: KETOROLAC 30 MG/ML INJ ONE (12:39)
[2022-02-28] MEDS ORDERED: dexAMETHasone 10 MG/ML VIAL ONE (12:39)
[2022-02-28] MEDS ORDERED: ONDANSETRON 4 MG/2 ML VIAL ONE (12:39)
[2022-02-28] MEDS ORDERED: MIDAZOLAM HCL 2 MG/2 ML INJ ONE (12:39)
[2022-02-28] MEDS ORDERED: ROCURONIUM 50 MG/5 ML VIAL IV ONE (12:39)
[2022-02-28] MEDS ORDERED: SUCCINYLCHOLINE 20 MG/ML (10 ML) IV ONE (12:57)
[2022-02-28] MEDS ORDERED: SUGAMMADEX SODIUM 200 MG/2 ML VIAL IV ONE (12:57)
[2022-02-28 14:51] VITALS: O2SAT 98
[2022-02-28] MEDS ORDERED: Mastisol Adhesive Liq ONE (14:56)
[2022-02-28 16:13] VITALS: BP 125/89; TEMP 98.9
--- NOTE | 2022-02-28 19:13 | DS ---
Ms. Celis is a 31-year-old patient who comes here with gallbladder disease. She was scheduled for laparoscopic cholecystectomy, but the anesthesiologist could not obtain a control of her airway in th e sense of mechanical ventilation. For that case, the case was cancelled, they did their best. Dr. Murphy, who is the director of that department was present, but he could not intubate in a safe [facility] ion. For that reason, they decided to postpone this case for some other day and I agree with them. So she will be discharged home. Continue low-fat diet. She was advised to come to my office and at that moment, we discussed the pros and cons of trying this again in another circumstances and finally we will make the decision if she is going to proceed with the cholecystectomy. REENA/ERNESTO Voice ID: [id number] Report ID: [id number]
== END 2022-02-28 15:58 | disposition home or self-care (01) ==
LOC: OR 10:18
PROVIDERS: ATTEND Surgery
PROC: 0FT44ZZ Resection of Gallbladder, Percutaneous Endoscopic Approach (ICD-10-PCS; principal; 2022-02-28 12:30)
DX: R10.11 Right upper quadrant pain (principal); R10.13 Epigastric pain; Z53.09 Procedure and treatment not carried out because of other contraindication
CPT/HCPCS: 36415; 82150; 81025; 83690; 47562; J2704; J0330; J2001; J2250; J3010 ×2; J1100; J7120; J2405; J0694

== ENCOUNTER 2024-02-03 20:32 | Emergency (ER) | payer OTHER, SELFPAY ==
[2024-02-03 20:53] LABS: Absolute Eosinophils 0.3 K/uL (0-0.5); Absolute Lymphocytes (CBC) 2.2 K/uL (0.7-4.9); Absolute Monocytes 0.7 K/uL (0.1-1.3); Absolute Neutrophil 5.4 K/uL (1.8-8.0); Basophils % 0.3 % (0-1.3); Eosinophils % 3.5 % (0-4.4); Hematocrit 32.6 % (36.0-45.0); Hemoglobin 11.3 g/dL (12.0-15.0); Lymphocytes % 25.3 % (15.3-44.8); MCHC 34.6 g/dL (32.0-36.0); MCV 89.4 fL (80-100); MPV 8.3 fL (7.6-11.3); Monocytes % 8.5 % (3.3-12.3); Neutrophils % 62.4 % (41.7-73.7); Platelets 174 thou/uL (152-406); RBC Red Blood Cell Count 3.65 M/uL (3.86-4.86); Red Cell Distribution Width 16.1 % (12.1-15.2)
[2024-02-03] MEDS ORDERED: ONDANSETRON 4 MG/2 ML VIAL ONE (20:54)
[2024-02-03] MEDS ORDERED: ACETAMINOPHEN 500 MG TAB ONE (20:54)
[2024-02-03] MEDS ORDERED: NA CHLORIDE 0.9% 1,000 ML ONE (20:55)
[2024-02-03 21:10] LABS: Albumin 2.7 g/dL (3.4-5.0); Albumin/Globulin Ratio 0.6 (1.1-1.8); Anion Gap 8.6 mEq/L (5.0-15.0); Bilirubin Total 0.2 mg/dL (0.2-1.0); Globulin 4.5 g/dL (2.3-3.5); Potassium 3.6 mEq/L (3.5-5.1); Protein, Total 7.2 g/dL (6.4-8.2)
--- NOTE | 2024-02-03 21:17 | ER ---
Nurse's Notes [facility] Name: Myra Celis Age: 33 yrs Sex: Female : 1990 Arrival Date: 02/03/2024 Time: 20:32 Bed 1 Private MD: Diagnosis: Acute early labor, at 35 weeks EGA, acute pelvic pain Presentation: 02/02 20:33 Chief complaint: Patient states: started having severe back pain and pelvic discomfort vc1 around 0100. 20:33 Method Of Arrival: Wheelchair vc1 20:33 Coronavirus screen: Client denies travel out of the [place] in the last 14 days. At this vc1 time, the client does not indicate any symptoms associated with coronavirus-19. Ebola Screen: Patient negative for fever greater than or equal to 101.5 degrees Fahrenheit, and additional compatible Ebola Virus Disease symptoms Patient denies exposure to infectious person. Patient denies travel to an Ebola-affected area in the 21 days before illness onset. No symptoms or risks identified at this time. Initial Sepsis Screen: Does the patient meet any 2 criteria? No. Patient's initial sepsis screen is negative. Does the patient have a suspected source of infection? No. Patient's initial sepsis screen is negative. Risk Assessment: Do you want to hurt yourself or someone else? Patient reports no desire to harm self or others. Onset of symptoms was February 03, 2024 at 13:00. Care prior to arrival: None. Activity prior to arrival: None. Mechanism of Injury: No Mechanism of Injury. 20:33 Acuity: NAINA 3 vc1 Triage Assessment: 20:33 General: Appears distressed, uncomfortable, Behavior is cooperative, restless. Pain: vc1 Complains of pain in mid back area Pain radiates to back Pain currently is 10 out of 10 on a pain scale. Quality of pain is described as sharp, Pain began 1 pm Noted to be grimacing, restless. EENT: No deficits noted. No signs and/or symptoms were reported regarding the EENT system. Neuro: Level of Consciousness is awake, alert, obeys commands, Oriented to person, place, time, situation, Appropriate for age. Cardiovascular: Heart tones S1 S2 present Capillary refill < 3 seconds Patient's skin is warm and dry. Rhythm is sinus tachycardia. Respiratory: Airway is patent Respiratory effort is even, unlabored, Respiratory pattern is regular, symmetrical, Breath sounds are clear bilaterally. GI: Abdomen is round, 35 weeks Patient currently denies abdominal pain. : No deficits noted. No signs and/or symptoms were reported regarding the genitourinary system. Derm: Skin is intact, is healthy with good turgor, Skin is dry, Skin is normal, Skin temperature is warm. Musculoskeletal: Circulation, motion, and sensation intact. Range of motion: intact in all extremities, Reports pain in mid back area Pain is 10 out of 10 on a pain scale. QUILL SKINNER: 20:53 3, Full Term 1, Living 1, unknown vc1 Historical: - PMHx: 20:49 chron's; sp4 - Immunization history:: Client reports having NOT received the Covid vaccine. - Social history:: Patient/guardian denies using alcohol, street drugs, IV drugs, caffeine, over the counter diet medications, tobacco products, Smoking status: Patient/guardian denies using tobacco, the patient reports quitting approximately 1 years ago. - Infectious Disease History:: Denies. - Family history:: not pertinent. Screenin:33 [facility] ED Fall Risk Assessment (Adult) History of falling in the last 3 months, vc1 including since admission No falls in past 3 months (0 pts) Confusion or Disorientation No (0 pts) Intoxicated or Sedated No (0 pts) Impaired Gait No (0 pts) Mobility Assist Device Used No (0 pt) Altered Elimination No (0 pt) Score/Fall Risk Level 0 - 2 = Low Risk Oriented to surroundings, Maintained a safe environment, Educated pt \T\ family on fall prevention, incl call for assistance when getting out of bed. Abuse screen: Denies threats or abuse. Nutritional screening: No deficits noted. Tuberculosis screening: No symptoms or risk factors identified. Assessment: 20:33 General: See triage assessment. vc1 20:33 Neuro: Level of Consciousness is awake, alert, obeys commands, Oriented to person, vc1 place, time, situation, Appropriate for age Reports weakness. 21:04 Reassessment: report given to JONATHAN Diaz. ha1 21:18 Reassessment: Patient and/or family updated on plan of care and expected duration. Pain ha1 level reassessed. Patient is alert, oriented x 3, equal unlabored respirations, skin warm/dry/pink. Vital Signs: 20:33 BP 123 / 71; Pulse 107; Resp 18; Temp 98.6; Pulse Ox 100% ; Weight 79.83 kg; Height 5 vc1 ft. 5 in. ; Pain 10/10; 20:33 Body Mass Index 29.29 (79.83 kg, 165.1 cm) vc1 20:33 Pain Scale: Adult vc1 Vitals: 20:33 Heart Tones FHT 183. vc1 20:57 Heart Tones 154. vc1 Buster Coma Score: 20:49 Eye Response: spontaneous(4). Motor Response: obeys commands(6). Verbal Response: sp4 oriented(5). Total: 15. ED Course: 20:33 Patient arrived in ED. jj6 20:33 Patient has correct armband on for positive identification. Bed in low position. Pulse vc1 ox on. NIBP on. 20:33 Arm band placed on left wrist. vc1 20:35 Assist provider with pelvic exam: Performed by John Huber MD Patient tolerated vc1 well. 20:39 John Huber MD is Attending Physician. sp4 20:40 Inserted saline lock: 20 gauge in right antecubital area, using aseptic technique. ha1 Blood collected. Flushed with 10 mL NS. 20:43 Carmencita Lazar, JONATHAN is Primary Nurse. ha1 20:52 Triage completed. vc1 21:00 Provided Education on: Transfer due to no OB. vc1 21:15 initiated transfer with [facility] spoke with Marko López / Patient was accepted to [facility] Kristian L\T\D Triage to Dr. Luke \T\ 2046 per Marko [facility], / initiated transport with EMS was advised that there was only 1 truck available/ initiated with [facility] spoke with Melodie patient was accepted \T\ 2051/ [facility] arrived \T\ 2109. 21:19 Patient transferred, IV remains in place. ha1 21:22 US OB Limited In Process Unspecified. EDMS Administered Medications: 21:02 Drug: Ondansetron IVP 4 mg IVP once; over 2 minutes Route: IVP; Site: right antecubital;ha1 21:18 Follow up: Response: No adverse reaction; Marked relief of symptoms ha1 21:02 Drug: NS 0.9% IV 1000 ml IV at 1 bolus Per protocol; to be given as a bolus over 60 ha1 minutes Route: IV; Rate: 1 bolus; Site: right antecubital; 21:18 Follow up: Response: No adverse reaction; IV Status: Infusion continued upon transfer; ha1 IV Intake: 500ml 21:02 Drug: Acetaminophen PO 1000 mg PO once Route: PO; ha1 21:18 Follow up: Response: No adverse reaction ha1 Medication: 21:00 VIS not applicable for this client. vc1 Intake: 21:18 IV: 500ml; Total: 500ml. ha1 Outcome: 21:16 ER care complete, transfer ordered by MD. sp4 21:18 Transferred by ground EMS Transfer form completed. X-rays sent w/ patient. Note: [facility] [place] 21:18 Condition: stable 21:18 Instructed on the need for transfer, Demonstrated understanding of instructions, 21:19 Patient left the ED. ha1 Signatures: Dispatcher [employer] EDMS Nohemi Busby [email or web address] Elzbieta Stapleton RN RN vc1 Carmencita Lazar RN RN ha1 John Huber MD MD sp4 Bridgett Ludwig Corrections: (The following items were deleted from the chart) 20:49 20:49 PMHx: Irritable bowel syndrome; sp4 sp4
--- NOTE | 2024-02-03 21:17 | EDPHYS ---
Physician Documentation [facility] Name: Myra Snowden Age: 33 yrs Sex: Female : 1990 Arrival Date: 02/03/2024 Time: 20:32 Bed 1 Private MD: ED Physician John Huber HPI: 02/02 20:39 This 33 yrs old Black Female presents to ER via Unassigned with complaints of Back sp4 Pain, Abdominal Pain, 35 WKS GESTATION. 20:41 33-year-old black female -0-1-1 at 35 weeks 1 day EGA by ultrasound who receives sp4 care in [facility], presents with acute pelvic pain back pain and pelvic pressure starting at 3 PM today. Denies contractions. Denies amniotic fluid leak. Denies associated medical conditions.. CARBONATOR: 20:53 3, Full Term 1, Living 1, unknown vc1 Historical: - PMHx: 20:49 chron's; sp4 - Immunization history:: Client reports having NOT received the Covid vaccine. - Social history:: Patient/guardian denies using alcohol, street drugs, IV drugs, caffeine, over the counter diet medications, tobacco products, Smoking status: Patient/guardian denies using tobacco, the patient reports quitting approximately 1 years ago. - Infectious Disease History:: Denies. - Family history:: not pertinent. ROS: 20:49 Constitutional: Negative for fever, chills, and weight loss, today for pelvic pressure, sp4 positive for pelvic pain, positive for back pain and pelvic discomfort 20:49 All other systems are negative, Exam: 20:49 Constitutional: This is a well developed, well nourished patient who is awake, alert, sp4 acutely uncomfortable Head/Face: Normocephalic, atraumatic. Eyes: Pupils equal round and reactive to light, extra-ocular motions intact. Lids and lashes normal. Conjunctiva and sclera are not injected. Cornea within normal limits. Periorbital areas with no swelling, redness, or edema. ENT: Nares patent. No nasal discharge, no septal abnormalities noted. Tympanic membranes are normal and external auditory canals are clear. Oropharynx with no redness, swelling, or masses, exudates, or evidence of obstruction, uvula midline. Mucous membranes moist. Neck: Trachea midline, no thyromegaly or masses palpated, and no cervical lymphadenopathy. Supple, full range of motion without nuchal rigidity, or vertebral point tenderness. Chest/axilla: Normal chest wall appearance and motion. Nontender with no deformity. No lesions are appreciated. Cardiovascular: Regular rate and rhythm with a normal S1 and S2. No gallops, murmurs, or rubs. Normal PMI, no JVD. No pulse deficits. Respiratory: Lungs have equal breath sounds bilaterally, clear to auscultation and percussion. No rales, rhonchi or wheezes noted. No increased work of breathing, no retractions or nasal flaring. Abdomen/GI: Soft, with normal bowel sounds. No distension or tympany. No guarding or rebound. No evidence of tenderness throughout. Back: No spinal tenderness. No costovertebral tenderness. Pelvic Exam: Normal external genitalia. Gloved vaginal exam - Cervix is not dilated . No significant effacement, sign of amniotic fluid leakage, no bleeding Skin: Warm, dry with normal turgor. Normal color with no rashes, no lesions, and no evidence of cellulitis. MS/ Extremity: Pulses equal, no cyanosis. Neurovascular intact. Full, normal range of motion. Neuro: Awake and alert, GCS 15, oriented to person, place, time, and situation. Cranial nerves II-XII grossly intact. Motor strength 5/5 in all extremities. Sensory grossly intact. Psych: Awake, alert, with orientation to person, place and time. Behavior, mood, and affect are within normal limits Vital Signs: 20:33 BP 123 / 71; Pulse 107; Resp 18; Temp 98.6; Pulse Ox 100% ; Weight 79.83 kg; Height 5 vc1 ft. 5 in. ; Pain 10/10; 20:33 Body Mass Index 29.29 (79.83 kg, 165.1 cm) vc1 20:33 Pain Scale: Adult vc1 Garita Coma Score: 20:49 Eye Response: spontaneous(4). Motor Response: obeys commands(6). Verbal Response: sp4 oriented(5). Total: 15. MDM: 21:16 Medical Screening Exam initiated sp4 21:16 Differential diagnosis: acute early labor. Data reviewed: vital signs, nurses notes, sp4 lab test result(s), electrolytes, hepatic panel, radiologic studies, ultrasound. Consideration of Admission/Observation Escalation of care including admission/observation considered. Management of patient was discussed with the following: Seismograph Shooter: OUTREACH SPECIALIST Dr. Antonio . ED course: Stable for transfer to [facility]. . 21:55 ED course: [address] [address] sp4 RADIOLOGYSERVICES REPORT Name: MYRA SNOWDEN Acct Number: [id number] :1990 Age:33 Sex:F Ord Phys: John Huber MD Unit Number: [id number] Prim Care Dr: NONE Status: [facility] ER ER Exam Date: 02/03/24 EXAM: OB Limited HISTORY: 35 weeks EGA, pelvic pain COMPARISON: None TECHNIQUE: Multiple grayscale and color Doppler images were obtained in a transabdominal pelvic ultrasound. Spectral analysis of the Doppler waveforms of the ovaries were performed. FINDINGS: Single IUP identified. Positive heart tones. heart rate is measured at 141 BPM. Femur length measures 6.8 cm which would be consistent with a 35 week 1 day gestation. RALPH is within normal limits at 18.5 cm. The placenta is fundal. An adequate cervical canal measurement was not obtained. IMPRESSION: Single live intrauterine with estimated age of 35 week 1 day. RALPH is within normal limits.. . 02/02 20:40 Order name: CBC with Diff; Complete Time: 21:55 sp4 02/02 20:40 Order name: CMP; Complete Time: 21:55 sp4 02/02 20:40 Order name: US OB Limited; Complete Time: 21:55 sp4 02/02 20:40 Order name: IV Saline Lock; Complete Time: 20:43 sp4 02/02 20:40 Order name: Labs collected and sent; Complete Time: 20:43 sp4 Administered Medications: 21:02 Drug: Ondansetron IVP 4 mg IVP once; over 2 minutes Route: IVP; Site: right antecubital;ha1 21:18 Follow up: Response: No adverse reaction; Marked relief of symptoms ha1 21:02 Drug: NS 0.9% IV 1000 ml IV at 1 bolus Per protocol; to be given as a bolus over 60 ha1 minutes Route: IV; Rate: 1 bolus; Site: right antecubital; 21:18 Follow up: Response: No adverse reaction; IV Status: Infusion continued upon transfer; ha1 IV Intake: 500ml 21:02 Drug: Acetaminophen PO 1000 mg PO once Route: PO; ha1 21:18 Follow up: Response: No adverse reaction ha1 Disposition Summary: 02/03/24 21:16 Transfer Ordered Notes: Transfer Location: [facility]-System sp4 Reason: Higher level of care sp4 Condition: Stable sp4 Problem: new sp4 Symptoms: have improved sp4 Accepting Physician: Dr. Antonio at [facility]. (02/03/24 21:19) ha1 Diagnosis - Acute early labor, at 35 weeks EGA, acute pelvic pain sp4 Discharge Instructions: - Discharge Summary Sheet vk Forms: - Medication Reconciliation Form sp4 - SBAR form vk Signatures: Dispatcher [employer] EDElzbieta Barrientos RN RN vc1 Carmencita Lazar RN RN ha1 John Huber MD MD sp4 Corrections: (The following items were deleted from the chart) 20:40 20:40 CBC+H.LAB.BRZ ordered. EDMS EDMS 20:40 20:40 COMPREHENSIVE METABOLIC PANEL+C.LAB.BRZ ordered. EDMS EDMS 20:40 20:40 Urinalysis+U.LAB.BRZ ordered. EDMS EDMS 20:49 20:49 PMHx: Irritable bowel syndrome; sp4 sp4 21:19 21:16 Dr. Antonio at [facility]. sp4 ha1
--- NOTE | 2024-02-03 21:29 | RAD REPORT ---
EXAM: OB Limited HISTORY: 35 weeks EGA, pelvic pain COMPARISON: None TECHNIQUE: Multiple grayscale and color Doppler images were obtained in a transabdominal pelvic ultra sound. Spectral analysis of the Doppler waveforms of the ovaries were performed. FINDINGS: Single IUP identified. Positive heart tones. heart rate is measured at 141 BPM. Femur gm gth measures 6.8 cm which would be consistent with a 35 week 1 day gestation. RALPH is within normal limits at 18.5 cm. The placenta is fundal. An adequate cervical canal measurement was not obtained. IMPRESSION: Single live intrauterine with estimated age of 35 week 1 day. RALPH is within nor mal limits..
[2024-02-04 01:24] VITALS: BP 123/71; TEMP 98.6; O2SAT 100
== END 2024-02-03 21:19 | disposition short-term general hospital (02) ==
LOC: ER 20:32
DX: O60.03 Preterm labor without delivery, third trimester (principal); Z3A.35 35 weeks gestation of pregnancy
CPT/HCPCS: 36415; 76815; 80053; 85025; 96374; 99285; J2405; J7030

== ENCOUNTER 2024-11-25 15:29 | Emergency (ER) | payer MEDICAID, OTHER ==
--- OUTSIDE RECORDS SUMMARY | 2024-11-25 15:31 | XMS REPORT | Continuity of Care Document ---
Author Name Unknown Address [address] [facility]. [address] [place] [address] Organization [facility] [place] Address [address] 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 Name Role Phone PCP, PATIENT DOES NOT HAVE A Primary Care Physic deloris Unavailable VERENA HUNTER Attending Clinician Unavailable VERENA HUNTER Attending Clinician Unavailable Verena Hunter MD Attending Clinician [phone] Doctor Unassigned, Protivin Attending Clinician U navailable VERENA HUNTER Admitting Clinician Unavailable Verena Hunter MD Admitting Clinician [phone] Payers Payer Name Policy Type Policy Number Effective Date Expirati on Date Source LEV CRISOSTOMO [id number] 2023 00:00:00 Problems Condition Name Condition Details Condition Category Status Onset Date Resolution Date Last Treatment Date Treating Clinician Comments Source Biliary colic Biliary colic Disease Active 2023-04 00:00: 00 [facility] 35 weeks gestation of 35 weeks gestation of Disease Active 2023-04 00:00: 00 [facility] Liveborn infant, of parnell , born in hospital by vaginal delivery Liveborn , of parnell , born in hospital by vaginal delivery Disease Active 09-27 00:00: 00 [facility] Mild pre-eclamp josephine in third trimester Mild pre-eclamp josephine in third trimester Disease Active 09-26 00:00: 00 [facility] Full-term premature rupture of membranes with onset of labor within 24 hours of rupture Full-term premature rupture of membranes with onset of labor within 24 hours of rupture Disease Active 6 00:00: 00 [facility] Obesity (BMI 30-39.9) Obesity (BMI 30-39.9) Disease Active 6 00:00: 00 [facility] 38 weeks gestation of 38 weeks gestation of Disease Active 09-25 00:00: 00 [facility] PUPP (pruritic urticarial papules and plaques of ) PUPP (pruritic urticarial papules and plaques of ) Disease Active 09-14 00:00: 00 [facility] PUPP (pruritic urticarial papules and plaques of ) PUPP (pruritic urticarial papules and plaques of ) Disease Active 09-14 00:00: 00 [facility] Pruritic urticarial papules and plaques of , antepartum , third trimester Pruritic urticarial papules and plaques of , antepartum , third trimester Disease Active 09-13 00:00: 00 Overview: Formattin g of this note might be different from the original. 09/13/18 - PUPPS rash. Patient started on Medrol dose pack. Serum bile acids normal on 09/10/18. [facility] Anemia of mother in , antepartum Anemia of mother in , antepartum Disease Active 07-03 00:00: 00 [facility] Anemia of mother in , antepartum Anemia of mother in , antepartum Disease Active 07-03 00:00: 00 [facility] Supervisio n of high-risk with insufficie nt care Supervisio n of high-risk with insufficie nt care Disease Active 06-29 00:00: 00 [facility] History of depression History of depression Disease Active 06-29 00:00: 00 [facility] History of herpes genitalis History of herpes genitalis Disease Active 06-29 00:00: 00 Overview: Formattin g of this note might be different from the original. suppressi on therapy start at 36 weeks [facility] Crohn's disease Crohn's disease Disease Active 06-29 00:00: 00 Overview: Formattin g of this note might be different from the original. Reports last time on meds was 06/2017 [facility] Allergies, Adverse Reactions, Alerts Allergy Name Allergy Type Status Severity Reaction(s) Onset Date Inactive Date Treating Clinician Comments Source Naproxen Propensi ty to adverse reaction s Active Hives 05-14 00:00: 00 [facility] NAPROXEN DRUG INGREDI Active Hives 05-14 00:00: 00 [facility] Social History Social Habit Start Date Stop Date Quantity Comments Source ASSERTION 2023-06-23 00:00:00 [facility] intake 2024-02-03 00:00:00 2024-02-03 00:00:00 Current non-drinker of alcohol (finding) [facility] Alcohol intake 2018-10-24 00:00:00 2018-10-24 00:00:00 Current non-drinker of alcohol (finding) [facility] History of Social function 2018-10-23 00:00:00 2018-10-23 00:00:00 [facility] Tobacco Comment 2018-06-29 00:00:00 2018-06-29 00:00:00 Pt quit 2 months ago [facility] Cigarettes smoked current (pack per day) - Reported 2018-06-29 00:00:00 2018-06-29 00:00:00 [facility] Cigarette pack-years 2018-06-29 00:00:00 2018-06-29 00:00:00 [facility] Tobacco use and exposure 2018-06-29 00:00:00 2018-06-29 00:00:00 Smokeless tobacco non-user [facility] History of tobacco use 2008-06-29 00:00:00 2018-05-01 00:00:00 Cigarette Smoker [facility] Sex assigned at 1990 00:00:00 1990 00:00:00 [facility] Smoking Status Start Date Stop Date Source Ex-smoker 2018-06-29 00:00:00 2018-06-29 00:00:00 [facility] Medications Ordered Medication Name Filled Medication Name Start Date Stop Date Current Medication? Ordering Clinician Indication Dosage Frequency Signature (SIG) Comments Components Source morphine (2 mg/mL) injection 2 mg 2023-04 06:00: 00 02-03 05:20 :00 No 2mg 2 mg, Slow IV Push, ONCE, 1 dose, On 02/04/24 at 0100, Routine [facility] diphenhydrA MINE:lidoca ine 2% viscous:maa lox 1:1:1 (FIRST-MOUT HWASH BLM) oral suspension 15 mL 2023-04 03:49: 00 02-03 04:25 :00 No 15mL 15 mL, Oral, ONCE, 1 dose, On 02/03/24 at 2300, Routine [facility] vitamin w/FA tablet 09-27 00:00: 00 Yes [id number] 1{tbl} Take 1 tablet by mouth daily. [facility] vitamin w/FA tablet 09-27 00:00: 00 Yes [id number] 1{tbl} Take 1 tablet by mouth daily. [facility] ferrous sulfate 325 mg (65 mg iron) tablet 09-27 00:00: 00 Yes [id number] 325mg Take 1 tablet by mouth 2 (two) times daily. [facility] Immunizations Ordered Immunization Name Filled Immunization Name Date Status Comments Source TDAP 2018-07-20 00:00:00 Completed [facility] TDAP 2018-07-20 00:00:00 Completed [facility] Influenza Virus Vaccine Quad .5 mL IM 6+ MO 2018-06-29 00:00:00 Completed [facility] Influenza Virus Vaccine Quad .5 mL IM 6+ MO (FLUZONE/FLULAVAL/F LUARIX) 2018-06-29 00:00:00 Completed [facility] HPV 2008-08-22 00:00:00 Completed [facility] HPV 2007-11-27 00:00:00 Completed [facility] Vital Signs Vital Name Observation Time Observation Value Comments S ource Heart rate 2024-02-04 07:30:00 104 /min [facility] Oxygen saturation in Arterial blood by Pulse oximetry 2024-02-04 07:30:00 99 /min [facility] Systolic blood pressure 2024-02-04 07:00:00 97 mm[Hg] [facility] Diastolic blood pressure 2024-02-04 07:00:00 53 mm[Hg] [facility] Body temperature 2024-02-04 03:00:00 36.72 Janiya [facility] Respiratory rate 2024-02-04 03:00:00 18 /min [facility] Body height 2024-02-04 03:00:00 165.1 cm [facility] Body weight 2024-02-04 03:00:00 79.833 kg [facility] BMI 2024-02-04 03:00:00 29.29 kg/m2 [facility] Procedures Procedure Date / Time Performed Performing Clinicia n Source AMYLASE 2024-02-04 04:13:00 [facility] LIPASE 2024-02-04 04:13:00 [facility] COMP. METABOLIC PANEL ([id number]) 2024-02-04 04:13:00 Verena Hunter [facility] Encounters Start Date/Time End Date/Time Encounter Type Admission Type Attending Clinicians Care Facility Care Department Encounter ID Source 2024-02-03 21:49:00 2024-02-04 02:38:00 Outpatient P VERENA HUNTER [facility] [id number] [facility] 2024-02-03 21:49:00 2024-02-04 02:38:00 Hospital Encounter Verena Hunter AT [facility] [id number] [facility] 2021-04-12 00:00:00 2021-04-12 00:00:00 Letter (Out) Doctor Unassigned, Protivin [facility] [id number] [facility]
[2024-11-25 17:52] LABS: Influenza A Ag Negative; Influenza B Ag Negative; SARS-CoV-2 Antigen Rapid Res Negative (Negative)
--- NOTE | 2024-11-25 17:54 | ER ---
Nurse's Notes [facility] Name: Myra Celis Age: 33 yrs Sex: Female : 1990 Arrival Date: 11/25/2024 Time: 15:29 Bed 11 Private MD: Diagnosis: Viral infection, unspecified Presentation: 11/25 16:14 Chief complaint: Patient states: ITCHY THROAT, CONGESTION AND 'GREEN NASAL DISCHARGE' dd2 X1 WEEK. REPORTS THEY WERE EXPOSED TO RSV. Coronavirus screen: At this time, the client does not indicate any symptoms associated with coronavirus-19. Ebola Screen: No symptoms or risks identified at this time. Initial Sepsis Screen: Does the patient meet any 2 criteria? No. Patient's initial sepsis screen is negative. Does the patient have a suspected source of infection? No. Patient's initial sepsis screen is negative. Risk Assessment: Do you want to hurt yourself or someone else? Patient reports no desire to harm self or others. Onset of symptoms was November 18, 2024. 16:14 Method Of Arrival: Ambulatory dd2 16:14 Acuity: NAINA 4 dd2 Triage Assessment: 16:23 General: Appears comfortable, Behavior is calm, cooperative, appropriate for age. Pain: dd2 Complains of pain in SORE THROAT. EENT: Reports pain when swallowing. 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 - Infectious Disease History:: Denies. - Social history:: Smoking status: Patient denies any tobacco usage or history of. Screenin:54 [facility] ED Fall Risk Assessment (Adult) History of falling in the last 3 months, ll1 including since admission No falls in past 3 months (0 pts) Confusion or Disorientation No (0 pts) Intoxicated or Sedated No (0 pts) Impaired Gait No (0 pts) Mobility Assist Device Used No (0 pt) Altered Elimination No (0 pt) Score/Fall Risk Level 0 - 2 = Low Risk Maintained a safe environment, Hourly rounding (assess needs \T\ fall precautionary measures) done. Abuse screen: Denies threats or abuse. Nutritional screening: No deficits noted. Tuberculosis screening: No symptoms or risk factors identified. Assessment: 17:54 Reassessment: No changes from previously documented assessment. Patient and/or family ll1 updated on plan of care and expected duration. Pain level reassessed. 18:32 Respiratory: Airway is patent Respiratory effort is even, unlabored, Breath sounds are ll1 clear bilaterally. EENT: Throat is clear. Vital Signs: 16:14 BP 141 / 95; Pulse 83; Resp 16; Temp 98.4; Pulse Ox 100% ; Pain 2/10; dd2 16:14 Pain Scale: Adult dd2 ED Course: 15:46 Patient arrived in ED. cj3 15:47 Hilaria Talbert [facility] sb4 15:47 Tomasz Taylor MD is Attending Physician. sb4 16:23 Triage completed. dd2 16:23 Arm band placed on right wrist. dd2 17:26 Group A Streptococcus Rapid Sent. bc6 17:26 COVID-19 Ag + Flu A+B Ag Sent. bc6 17:26 COVID swab sent to lab. Flu and/or RSV swab sent to lab. Strep swab sent to lab. bc6 18:32 Patient has correct armband on for positive identification. Provided Education on: n/a. ll1 18:32 No provider procedures requiring assistance completed. Patient did not have IV access ll1 during this emergency room visit. Administered Medications: No medications were administered Medication: 18:32 VIS not applicable for this client. ll1 Outcome: 17:54 Discharge ordered by MD. sb4 17:54 Discharged to home ambulatory, ll1 17:54 Condition: stable 17:54 Discharge instructions given to patient, Instructed on discharge instructions, follow up and referral plans. Demonstrated understanding of instructions, follow-up care, 18:32 Patient left the ED. ll1 Signatures: Marianna Gomez RN RN ll1 Hilaria Talbert PA-C PA-C sb4 Marilee Barrett bc6 KAYLEEN GAMBOA RN RN dd2 Kathy Francois cj3 Corrections: (The following items were deleted from the chart) 16:23 16:23 PSHx: None; dd2 dd2
--- NOTE | 2024-11-25 17:54 | EDPHYS ---
Physician Documentation [facility] Name: Myra Celis Age: 33 yrs Sex: Female : 1990 Arrival Date: 11/25/2024 Time: 15:29 Bed 11 Private MD: ED Physician Tomasz Taylor HPI: 11/25 16:20 This 33 yrs old Black Female presents to ER via Unassigned with complaints of Sore sb4 Throat, Stuffy Nose. 16:20 Scratchy throat and stuffy nose since yesterday. Family friend was diagnosed with RSV sb4 and daughter has similar symptoms. No reported fever. No nausea, vomiting, diarrhea. 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 - Infectious Disease History:: Denies. - Social history:: Smoking status: Patient denies any tobacco usage or history of. ROS: 16:20 Constitutional: Negative for fever, chills, and weight loss, sb4 16:20 ENT: Positive for Per HPI, 16:20 All other systems are negative, Exam: 16:20 Constitutional: This is a well developed, well nourished patient who is awake, alert, sb4 and in no acute distress. Head/Face: Normocephalic, atraumatic. Eyes: Extra-ocular motions intact. Periorbital areas with no swelling, redness, or edema. ENT: Mucous membranes moist. Cardiovascular: Regular rate and rhythm with a normal S1 and S2. Respiratory: No increased work of breathing, no retractions or nasal flaring. Skin: Warm, dry with normal turgor. Normal color with no rashes, no lesions, and no evidence of cellulitis. Vital Signs: 16:14 BP 141 / 95; Pulse 83; Resp 16; Temp 98.4; Pulse Ox 100% ; Pain 2/10; dd2 16:14 Pain Scale: Adult dd2 MDM: 15:50 Medical Screening Exam initiated sb4 16:20 Differential diagnosis: group A strep tonsillitis, influenza, viral syndrome. sb4 17:53 Data reviewed: vital signs, nurses notes, lab test result(s), and as a result, I will sb4 discharge patient. Historians other than the Patient: Parent: mother. Counseling: I had a detailed discussion with the patient and/or guardian regarding the historical points, exam findings, and any diagnostic results supporting the discharge/admit diagnosis, lab results, the need for outpatient follow up, for definitive care, to return to the emergency department if symptoms worsen or persist or if there are any questions or concerns that arise at home. 11/25 16:15 Order name: COVID-19 Ag + Flu A+B Ag; Complete Time: 17:53 sb4 11/25 16:15 Order name: Group A Streptococcus Rapid; Complete Time: 17:50 sb4 11/25 17:52 Order name: Throat Culture EDRI Administered Medications: No medications were administered Disposition Summary: 11/25/24 17:54 Discharge Ordered Notes: Location: Home sb4 Problem: new sb4 Symptoms: are unchanged sb4 Condition: Stable sb4 Diagnosis - Viral infection, unspecified sb4 Followup: sb4 - With: Emergency Department - When: As needed - Reason: Trouble breathing, Worsening of condition Discharge Instructions: - Discharge Summary Sheet sb4 - Viral Illness, Adult sb4 Forms: - Patient Portal Instructions sb4 - Leadership Thank You Letter sb4 Addendum: 11/28/2024 14:36 Co-signature as Attending Physician, Tomasz Taylor MD I agree with the assessment and c durand plan of care. Signatures: Dispatcher [employer] EDTomasz Juarez MD MD cha Brown, Sophia, PA-C PA-C sb4 KAYLEEN GAMBOA, RN RN dd2 Corrections: (The following items were deleted from the chart) 11/25 16:23 16:23 PSHx: None; dd2 dd2
[2024-11-25 19:10] VITALS: BP 141/95; TEMP 98.4; O2SAT 100
== END 2024-11-25 18:32 | disposition home or self-care (01) ==
LOC: ER 15:29
DX: B34.9 Viral infection, unspecified (principal); Z11.52 Encounter for screening for COVID-19
CPT/HCPCS: 36415; 87070; 87428; 99283